=== PATIENT | female | born 1980 | race Caucasian/White ===

== ENCOUNTER → 2017-05-04 | Outpatient (CLI) | payer BC ==
--- NOTE | 2017-05-04 11:21 | MM ---
Reason for exam: screening (asymptomatic). Baseline mammogram. History: Family history of breast cancer in mother at age 60 and breast cancer in maternal grandmother at age 60. Took hormonal contraceptives for 19 years beginning at age 11. Physical Findings: Nurse did not find any significant physical abnormalities on exam. MG Screening Mammo w CAD Bilateral CC and MLO view(s) were taken. The breast tissue is heterogeneously dense. This may lower the sensitivity of mammography. There is no discrete abnormality. Consider BRACA testing secondary to family history. These results were verbally communicated with the patient and result sheet given to the patient on 05/04/17. ASSESSMENT: Negative, BI-RAD 1 RECOMMENDATION: Routine screening mammogram of both breasts at age 38.
== END | disposition home or self-care (01) ==
LOC: RADMAMWWP 09:38
PROVIDERS: ATTEND Family Medicine
DX: Z12.31 Encounter for screening mammogram for malignant neoplasm of breast (principal)

== ENCOUNTER → 2017-07-16 | Outpatient (CLI) | payer BC ==
[2017-07-16 12:37] LABS: Basophils # (A) 0.1 k/uL (0-0.2); Basophils % (A) 2 %; CH 33.3; CHCM 33.8; Eosinophils # (A) 0.2 k/uL (0-0.7); Eosinophils % (A) 3 %; HCT 45.7 % (34.0-46.0); HDW 2.43; HGB 15.1 gm/dL (11.4-16.0); Luc # (Auto) 0.14; Luc % (Auto) 3; Lymphocytes # (A) 1.6 k/uL (1.0-4.8); Lymphocytes % (A) 28 %; MCH 32.7 pg (25.0-35.0); MCHC 33.1 g/dL (31.0-37.0); Mean Platelet Volume 8.4; Monocytes # (A) 0.4 k/uL (0-1.0); Monocytes % (A) 7 %; Neutrophils # (A) 3.2 k/uL (1.3-7.7); Neutrophils % (A) 58 %; RBC 4.62 m/uL (3.80-5.40); RDW 13.4 % (11.5-15.5); WBC 5.6 k/uL (3.8-10.6); WBC (Perox) 5.48
== END | disposition home or self-care (01) ==
LOC: LABPAT 09:52
PROVIDERS: ATTEND Obstetrics & Gynecology
DX: Z01.812 Encounter for preprocedural laboratory examination (principal); N92.1 Excessive and frequent menstruation with irregular cycle
CPT/HCPCS: 85025

== ENCOUNTER → 2017-07-31 | Day surgery (SDC) | payer BC ==
[2017-07-20 14:12] VITALS: BMI 38.7
--- NOTE | 2017-07-27 11:58 | HP ---
HISTORY AND PHYSICAL DATE OF SURGERY: 07/31/2017. HISTORY OF PRESENT ILLNESS: The patient is a 37-year-old, 0, para 0, who presents on referral from Lenora Pace for an evaluation of increasing menstrual heaviness with regularity. She underwent a tubal ligation several years ago and has found that since that time her periods have significantly increased in heaviness and become more and more irregular. She has used oral contraceptives in the past but has never tolerated them well nor has it controlled her bleeding very well. She denies any significant dysmenorrhea and reports the bleeding is her primary problem. After discussion of potential options for treatment, the patient has requested to proceed with diagnostic hysteroscopy with NovaSure endometrial ablation. PAST MEDICAL HISTORY: Significant for hypothyroidism and asthma. PAST SURGICAL HISTORY: Significant for history of cryotherapy, knee surgeries on 3 separate occasions, tonsillectomy, and tubal ligation. There were no reported complications from anesthetic. OBSTETRICAL HISTORY: 0, para 0, with methods of contraception being tubal ligation. GYNECOLOGIC HISTORY: Unremarkable with no history of any infections to include STDs. FAMILY HISTORY: Noncontributory. SOCIAL HISTORY: The patient is single and is a nonsmoker though she did smoke in the past. She reports occasional alcohol and denies any other social concerns. CURRENT MEDICATIONS: She does not have any current medications. ALLERGIES: CODEINE AND DARVOCET causes nausea. REVIEW OF SYSTEMS: As confined to history of present illness. PHYSICAL EXAMINATION: Vital signs are stable. Patient is afebrile. In general, this is a well developed, mild to moderately obese white female, in no acute distress. Her heart has a regular rhythm and rate without murmur. Her lungs are clear to auscultation bilateral in all frankel. Her abdomen is obese, nondistended, and has normoactive bowel sounds, soft, nontender, and without any palpable masses, hepatosplenomegaly, or hernias. Her extremities are without any cyanosis, clubbing, or edema and are not tender to palpation bilaterally. Bimanual pelvic examination demonstrates normal external genitalia and BUS with normal vaginal mucosa and cervix. There is no cervical motion tenderness. The uterus is 5 weeks in size, mid plane, mobile, nontender, normal in shape. Endometrial biopsy was done in 1 pass demonstrating benign findings. ASSESSMENT AND PLAN: Menometrorrhagia: After discussion of potential options, the patient has chosen to proceed with diagnostic hysteroscopy and NovaSure endometrial ablation. Risks and complications have been thoroughly discussed including the risks of bleeding, bleeding requiring transfusion, infection, injury to local structures to specifically include uterine perforation, Asherman syndrome, and hematometra subsequently. She has understood all these concerns and has agreed to proceed. We are scheduled for the morning of July 31, 2017 for the above procedures. MMODL / IJN: [id number] /
[~2017-07-31] MED LIST: Acetaminophen-Codeine 300-30mg TAB PO PRN; DEXAMETHASONE SOD PHOSPHATE 10 MG/ML 1 ML VIAL IV ONE; IBUPROFEN 600 MG TAB PO PRN; KETOROLAC 30 MG/ML 1 ML VIAL IVP PRN; KETOROLAC 30 MG/ML 1 ML VIAL ONE; LACTATED RINGERS 1,000 ML IV SCH; LIDOCAINE 1% 20 ML VIAL (10MG/ML) FOR IV START INTRADERMA PRN; LIDOCAINE 1% INJ 10MG/ML (20 ML MDV) ONE; METOCLOPRAMIDE 5 MG/ML 2 ML VIAL IVP PRN; MIDAZOLAM 2 MG/2 ML VIAL ONE; ONDANSETRON 4 MG/2 ML VIAL IVP ONE; ONDANSETRON 4 MG/2 ML VIAL IVP PRN; PROPOFOL 10 MG/ML 20 ML VIAL IV ONE; Pre Op ABX Message 1 EACH MISC MISCELLANE ONE; ROCURONIUM BROMIDE 10 MG/ML 10 ML VIAL IV ONE; SCOPOLAMINE 1.5MG/72HR PATCH TRANSDERM ONE; SIMETHICONE 80 MG CHEWABLE PO PRN; SUCCINYLCHOLINE CHLORIDE 100 MG/5 ML SYR IV ONE; diphenhydrAMINE 50 MG/ML 1 ML VIAL IVP PRN; fentaNYL (PF) 50 MCG/ML 2 ML AMP IV PRN; fentaNYL (PF) 50 MCG/ML 2 ML AMP ONE
--- NOTE | 2017-07-31 08:53 | P.OP ---
Date of Procedure: 07/31/17 Preoperative Diagnosis: #1. Menometrorrhagia Postoperative Diagnosis: Same Procedure(s) Performed: #1. Diagnostic hysteroscopy #2. NovaSure endometrial ablation Implants: Anesthesia: CALEBA Surgeon: Misael Gifford Estimated Blood Loss (ml): 5 IV fluids (ml): 400 Urine output (ml): 10 Pathology: none sent Condition: stable Disposition: PACU Indications for Procedure: Operative Findings: Preoperative pelvic examination demonstrated a 4-5 week slightly anteverted mobile normal shaped uterus with normal adnexa bilaterally. Intraoperatively, the uterus sounded to 8 cm and the cervix was approximately 3 cm in length. Using the diagnostic hysteroscope, both tubal ostia areas were seen though there was some shaggy tissue in the fundus of the uterus the obscuring actual view of the ostia on each side. There was no fibroids or polyps seen. The settings for the NovaSure tool where a length of 5.0 cm, a width of 3.0 cm, and a total power of 83 W. A total run time was 90 seconds after which time the base unit read "procedure complete." The postprocedural result appeared to be excellent. The patient is a poor candidate for vaginal hysterectomy. Description of Procedure: The patient was prepped and draped in usual fashion after general endotracheal anesthesia was administered by the anesthesiologist. A weighted speculum was placed and the bladder drained of approximately 10 mL of clear urine. The anterior lip of the cervix was grasped with a single-tooth tenaculum and uterus sounded to 8 cm with a cervical length of 3 cm. Serial dilation was carried out to admit the diagnostic hysteroscope which demonstrate findings as noted above. Once adequate hysteroscopy had been carried out, the scope was set aside and further dilation carried out to admit the NovaSure tool. It was placed to the fundus and opened and seated well. The settings for the tool as noted above, a length of 5.0 cm, a width of 3.0 cm, and at total power of 83 W. The cavity check was attempted and passed without difficulty. The tool was enabled and the run was started. After run time of 98 seconds, the tool disengaged and the base unit read "procedure complete." The 2 was removed and discarded and the diagnostic scope place within the endometrial cavity with the findings as noted above. The result appeared to be excellent. All instrument H was then removed. The tenaculum points were noted to be bleeding or made hemostatic with pressure. Estimated blood loss for the case was less than 5 mL. There are no, occasions. All sponge, instrument, and needle counts were correct. The patient tolerated the procedure well and proceeded to the recovery room in stable condition.
[2017-07-31 09:09] VITALS: TEMP 96.8
[2017-07-31 09:45] VITALS: RESP 18
[2017-07-31 10:09] VITALS: BP 136/93; PULSE 78
== END | disposition home or self-care (01) ==
LOC: OR 07:13
PROVIDERS: ATTEND Obstetrics & Gynecology
DX: N92.1 Excessive and frequent menstruation with irregular cycle (principal); E03.9 Hypothyroidism, unspecified; J45.909 Unspecified asthma, uncomplicated; Z88.5 Allergy status to narcotic agent; Z79.899 Other long term (current) drug therapy
CPT/HCPCS: 81025; 58563; J2250; J1100; J2405; J2001; J3010; J1885; J0330; J2704

== ENCOUNTER 2019-07-18 14:46 | Emergency (ER) | payer BC ==
[2019-07-18 14:58] VITALS: RESP 18
[2019-07-18] MEDS ORDERED: ceFAZolin 1,000 MG VIAL (IM USE) IM STA (15:02)
[2019-07-18] MEDS ORDERED: LIDOCAINE 1% INJ 10MG/ML (20 ML MDV) SQ STA (15:03)
[2019-07-18] MEDS ORDERED: DIPH,PERTUS(ACELL)TETVAC-LF 0.5 ML VIAL IM ONE (15:12)
--- NOTE | 2019-07-18 16:39 | ED ---
General Adult HPI - General Source: patient, RN notes reviewed, old records reviewed Mode of arrival: ambulatory Limitations: no limitations <Hugh Preciado - Last Filed: 07/18/19 16:49> <Ange Gabriel - Last Filed: 07/25/19 01:16> - General Chief complaint: Extremity Injury, Upper Stated complaint: Finger Laceration/Injury Time Seen by Provider: 07/18/19 14:57 - History of Present Illness Initial comments: 39-year-old female patient with chief complaint of laceration to distal aspect of third digit. Patient reports that she dropped 2 boxes of Tylenol on the distal aspect of her third and fourth finger. Causing the laceration and pain. Patient has full active range of motion of digit, capillary refill less than 2 seconds. Patient does have a 3 cm laceration of the distal aspect of her third digit. Patient was initially seen at urgent care, they recommend she presented to ED for possible open fracture. Denies any other complaints at this time does not know date of last tetanus. Systemic: Pt denies fatigue, fever/chills, rash. Pt denies weakness, night sweats, weight loss. Neuro: Pt denies headache, visual disturbances, syncope or pre-syncope. HEENT: Pt denies ocular discharge or irritation, otalgia, rhinorrhea, pharyngitis or notable lymphadenopathy. Cardiopulmonary: Pt denies chest pain, SOB, heart palpitations, dyspnea on exertion. Abdominal/GI: Pt denies abdominal pain, n/v/d. : Pt denies dysuria, burning w/ urination, frequency/urgency. Denies new onset urinary or bowel incontinence. MSK: Pt denies myalgia, loss of strength or function in extremities. Neuro: Pt denies new onset weakness, paresthesias. (Hugh Preciado) - Related Data Home Medications Medication Instructions Recorded Confirmed SUMAtriptan SUCCINATE [Imitrex] 25 mg PO BID PRN 07/20/17 07/31/17 Previous Rx's Medication Instructions Recorded Cephalexin [Keflex] 500 mg PO Q6HR 10 Days #40 cap 07/18/19 Allergies Allergy/AdvReac Type Severity Reaction Status Date / Time codeine AdvReac Nausea & Verified 07/18/19 14:51 Vomiting Review of Systems ROS Other: All systems not noted in ROS Statement are negative. <Hugh Preciado - Last Filed: 07/18/19 16:49> ROS Other: All systems not noted in ROS Statement are negative. <Ange Gabriel - Last Filed: 07/25/19 01:16> ROS Statement: Those systems with pertinent positive or pertinent negative responses have been documented in the HPI. Past Medical History Past Medical History: Osteoarthritis (OA) History of Any Multi-Drug Resistant Organisms: None Reported Past Surgical History: Orthopedic Surgery, Tonsillectomy Additional Past Surgical History / Comment(s): fx left femur repair, knee surg. Past Anesthesia/Blood Transfusion Reactions: Postoperative Nausea & Vomiting (PONV) Past Psychological History: No Psychological Hx Reported Smoking Status: Former smoker Past Alcohol Use History: Occasional Past Drug Use History: None Reported - Past Family History Mother Family Medical History: Cancer Additional Family Medical History / Comment(s): breast Father Family Medical History: Cancer Additional Family Medical History / Comment(s): prostate <Hugh Preciado - Last Filed: 07/18/19 16:49> General Exam Limitations: no limitations <Hugh Preciado - Last Filed: 07/18/19 16:49> - General Exam Comments Initial Comments: Constitutional: NAD, AOX3, Pt has pleasant affect. HEENT: NC/AT, trachea midline, neck supple, no lymphadenopathy. Posterior pharynx non erythematous, without exudates. External ears appear normal, without discharge. Mucous membranes moist. Eyes PERRLA, EOM intact. There is no scleral icterus. No pallor noted. Cardiopulmonary: RRR, no murmurs, rubs or gallops, no JVD noted. Lungs CTAB in anterior and posterior frankel. No peripheral edema. Abdominal exam: Abdomen soft and non-distended. Abdomen non-tender to palpation in all 4 quadrants. Bowel sounds active in LLQ. No hepatosplenomegaly. No ecchymosis Neuro: CN II-XII grossly intact. No nuchal rigidity. No raccon eyes, no brito sign, no hemotympanum. No cervical spinal tenderness. MSK: 3 cm laceration to distal aspect of third digit, no nailbed involvement, approximated with 5 simple interrupted sutures. Grossly irrigated with 1 L normal saline, cleaned with Betadine. No osseous or tendinous involvement. No posterior calf tenderness bilaterally, homans sign negative bilaterally. Posterior tibialis and radial pulse +2 bilaterally. Sensation intact in upper and lower extremities. Full active ROM in upper and lower extremities, 5/5 stregnth. (Hugh Preciado) Course Vital Signs 07/18/19 07/18/19 07/18/19 14:51 16:07 16:50 Temperature 97.9 F 97.7 F Pulse Rate 112 H 102 H 104 H Respiratory 18 18 18 Rate Blood Pressure 174/104 160/101 138/88 O2 Sat by Pulse 94 L 94 L 98 Oximetry Medical Decision Making <Hugh Preciado - Last Filed: 07/18/19 16:49> <Ange Gabriel - Last Filed: 07/25/19 01:16> - Medical Decision Making 39-year-old female patient with chief complaint of laceration to distal aspect of third digit. Patient reports that she dropped 2 boxes of Tylenol on the distal aspect of her third and fourth finger. Causing the laceration and pain. Patient has full active range of motion of digit, capillary refill less than 2 seconds. Patient does have a 3 cm laceration of the distal aspect of her third digit. Patient was initially seen at urgent care, they recommend she presented to ED for possible open fracture. Denies any other complaints at this time does not know date of last tetanus. Patient vital signs stable at discharge. Patient vital signs displayed mild hypertension, tachycardia likely secondary to pain. Physical exam displayed: 3 cm laceration to distal aspect of third digit, no nailbed involvement, approximated with 5 simple interrupted sutures. Grossly irrigated with 1 L normal saline, cleaned with Betadine. No osseous or tendinous involvement. Plain film of hand dictated by radiologist Reza Soares displayed a cute comminuted minimally displaced fracture distal third phalanx. Wound was loosely irrigated with 1 L normal saline, prepped male with 5 simple interrupted sutures, patient administered 1 g Ancef, will be discharged with Keflex 4 times a day, will have close outpatient follow-up with orthopedist tomorrow, discharge and straight finger splint. Films were reviewed. Case discussed and patient seen by Dr. Gabriel. (Hugh Preciado) I did evaluate the patient myself. She presents with an open fracture to the left third digit. her x-rays were reviewed. her laceration was copiously irrigated with normal saline. her tetanus was updated. Her lacerations was repaired in a single layer closure utilizing 5 interrupted sutures. There was good approximation of the skin and the patient tolerated the procedure well as local infiltration with 1% lidocaine without epinephrine was utilized. She is given a dose of ancef in the ED. She will be discharged home on antibiotics. She needs to see orthopedics without fail. She was placed in a baseball splint. She remained neurovascularly intact after splint placement. If she has any new or worsening symptoms, she should return to the ED. She was discharged home in stable condition. (Ange Gabriel) Disposition Is patient prescribed a controlled substance at d/c from ED?: No <Hugh Preciado - Last Filed: 07/18/19 16:49> <Ange Gabriel - Last Filed: 07/25/19 01:16> Clinical Impression: Fracture of distal phalanx of finger, Laceration Disposition: HOME SELF-CARE Condition: Stable Instructions (If sedation given, give patient instructions): Laceration (ED), Finger Fracture (ED) Additional Instructions: Patient to adhere to previously discussed treatment plan and will take medication(s) as directed. Patient to follow up with PCP in 1-2 days. Patient to return to ED if symptoms do not improve. Follow-up with primary care provider and orthopedic consult tomorrow. Take medication as directed. Return to ER immediately if conditions worsen. Please return for suture removal: Hand: 7-10 days Face: 5 days Chest/abdomen: 12-14 days Extremities: 7-10 days Scalp: 7 days Eyebrow: 5-7 days Foot/sole: 12-14 days Please monitor for signs and symptoms of infection including: redness, warmth, drainage, discharge. Please return to ED if these signs or symptoms occur, new signs or symptoms d evelop or if condition worsens in anyway. Prescriptions: Cephalexin [Keflex] 500 mg PO Q6HR 10 Days #40 cap Referrals: Nia Rocha III, MD [Primary Care Provider] - 1-2 days Nate Garsia DO [Medical Doctor] - 1-2 days
[2019-07-18 16:51] VITALS: BP 138/88; PULSE 104; TEMP 97.7
== END 2019-07-18 16:51 | disposition home or self-care (01) ==
LOC: EC 14:46
DX: S62.633B Displaced fracture of distal phalanx of left middle finger, initial encounter for open fracture (principal); Z23 Encounter for immunization; W20.8XXA Other cause of strike by thrown, projected or falling object, initial encounter; Y99.0 Civilian activity done for income or pay
CPT/HCPCS: 90715; 99283; 90471; 96372; 12002; J0690; J2001

== ENCOUNTER → 2021-12-31 | Outpatient (CLI) | payer BC ==
[2021-12-31 11:41] LABS: Appearance,Urine Clear (Clear); Bilirubin,Urine Negative (Negative); Blood,Urine Moderate (Negative); Color,Urine Light Yellow; Glucose,Urine (UA) Negative (Negative); Ketones,Urine Negative (Negative); Leukocyte Esterase,Urine Negative (Negative); Nitrite,Urine Negative (Negative); PH, Urine 6.5 (5.0-8.0); Protein,Urine Negative (Negative); RBC,Urine <1 /hpf (0-5); Specific Gravity,Urine 1.008 (1.001-1.035); Squamous Epithelial Cell,Urine 2 /hpf (0-4); Urobilinogen,Urine <2.0 mg/dL (<2.0); WBC,Urine 1 /hpf (0-5)
[2021-12-31 16:21] LABS: Basophils # (A) 0.08 X 10*3/uL (0.00-0.10); Basophils % (A) 1.4 %; Eosinophils # (A) 0.19 X 10*3/uL (0.04-0.35); Eosinophils % (A) 3.4 %; HCT 45.5 % (37.2-46.3); Immature Grans, Automated 0.2 %; Lymphocytes # (A) 1.64 X 10*3/uL (0.90-5.00); Lymphocytes % (A) 29.5 %; MCH 31.1 pg (27.0-32.0); MCV 94.4 fL (80.0-97.0); Mean Platelet Volume 10.4 fL (9.5-12.2); Monocytes # (A) 0.47 X 10*3/uL (0.20-1.00); Monocytes % (A) 8.5 %; NRBC Per 100 WBC 0 /100 WBCS (0.0-0.0); Neutrophils # (A) 3.16 X 10*3/uL (1.80-7.70); Platelet Count 319 X 10*3/uL (140-440); RBC 4.82 X 10*6/uL (4.10-5.20); RDW 12.5 % (11.5-14.5); WBC 5.55 X 10*3/uL (4.50-10.00)
[2021-12-31 16:29] LABS: African American GFR (CKD) 100.7 (60.0-200.0); Anion Gap 12.2 mmol/L (10.00-18.00); Blood Urea Nitrogen 13.1 mg/dL (9.0-27.0); Carbon Dioxide 22.5 mmol/L (20.0-27.5); Non-African American GFR(CKD) 86.9 (60.0-200.0); Potassium 4.2 mmol/L (3.5-5.5)
== END | disposition home or self-care (01) ==
LOC: LABPAT 10:28
PROVIDERS: ATTEND Obstetrics & Gynecology
DX: Z01.812 Encounter for preprocedural laboratory examination (principal); D25.9 Leiomyoma of uterus, unspecified
CPT/HCPCS: 80051; 81001; 82565; 84520; 85025

== ENCOUNTER 2022-01-10 05:46 | Inpatient (IN) | payer BC ==
[2022-01-05 12:02] VITALS: BMI 41.0
[2022-01-10] MEDS ORDERED: HYDROmorphone 0.5 MG/0.5 ML SYRINGE IVP PRN (06:15)
[2022-01-10] MEDS ORDERED: ONDANSETRON 4 MG/2 ML VIAL IVP ONE (06:15)
[2022-01-10] MEDS ORDERED: DEXAMETHASONE SOD PHOSPHATE 4 MG/ML 1 ML VIAL IV ONE (06:15)
[2022-01-10] MEDS ORDERED: LACTATED RINGERS 1,000 ML IV SCH (06:15)
[2022-01-10 06:45] LABS: Glucose,Whole Blood 95 mg/dL (75-99)
[2022-01-10] MEDS ORDERED: LACTATED RINGERS 1,000 ML IV ONE (07:05)
[2022-01-10] MEDS ORDERED: MIDAZOLAM 2 MG/2 ML VIAL IVP ONE (07:09)
[2022-01-10 07:18] VITALS: BP 149/88; PULSE 90; RESP 16; TEMP 97.6
[2022-01-10] MEDS ORDERED: diphenhydrAMINE 50 MG/ML 1 ML VIAL ONE (07:49)
[2022-01-10] MEDS ORDERED: diphenhydrAMINE 50 MG/ML 1 ML VIAL IVP ONE (07:49)
== END 2022-01-10 10:03 | disposition home or self-care (01) | DRG 760 ==
LOC: 2ORMAIN 05:46
PROVIDERS: ADMIT Obstetrics & Gynecology; ATTEND Obstetrics & Gynecology
DX: D25.9 Leiomyoma of uterus, unspecified (principal); U07.1 COVID-19; Z53.09 Procedure and treatment not carried out because of other contraindication; N94.6 Dysmenorrhea, unspecified; Z98.51 Tubal ligation status; J45.909 Unspecified asthma, uncomplicated; E03.9 Hypothyroidism, unspecified; Z79.890 Hormone replacement therapy; Z88.5 Allergy status to narcotic agent; Z87.891 Personal history of nicotine dependence
CPT/HCPCS: 36415; 86850; 86900; 86901; 87635

== ENCOUNTER 2022-01-24 10:30 | Inpatient (IN) | payer BC ==
--- NOTE | 2022-02-02 15:12 | HP ---
HISTORY AND PHYSICAL REASON FOR ADMISSION: Dictation is done on February 02 for surgery on February 07. HISTORY OF PRESENT ILLNESS: The patient is a 41-year-old 0, para 0, who presented recently for annual examination at which time, she was found with a significantly enlarged probable fibroid uterus in the size of 16-20 weeks. Prior to that visit, she had last been seen in 2017 for an ablation at which time the uterus had been documented approximately 5 week size. She reports significant dysmenorrhea, though she does not have significantly heavy periods. Ultrasounds confirmed multiple fibroids with the largest which is probably appears to be pedunculated in nature. The fundus ranging approximately 14 cm in size. The patient has requested definitive therapy. She had been previously scheduled approximately 1 month ago, but, per hospital protocol, had COVID testing, which was found to be positive despite being completely asymptomatic. Nevertheless, the case was canceled and rescheduled for 30 days later per the recommendations of the [employer]. PAST MEDICAL HISTORY: Significant for hypothyroidism and asthma. SURGICAL HISTORY: She has a remote history of cryotherapy. She otherwise has had multiple knee surgeries. She had her tonsils removed in 1999, and tubal ligation in 2013. She then had hysteroscopy with NovaSure endometrial ablation in 2016. There were no anesthetic concerns. OBSTETRICAL/MINE MANAGER HISTORY: 0, para 0, with tubal ligation in place for contraception. Gynecologic history: Unremarkable with no recent history of infections to include STDs though she does have a remote history of same treated many years back. FAMILY HISTORY: Noncontributory. 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 She is a nonsmoker but has a history of smoking in the past. She reports occasional alcohol and no other social concerns. CURRENT MEDICATIONS: Ubrelvy for migraine headaches. ALLERGIES: CODEINE and DARVOCET reportedly caused nausea in the past. REVIEW OF SYSTEMS: Is confined to history of present illness. PHYSICAL EXAMINATION: Vital signs are stable. The patient is afebrile. In general, this is a well- developed, well to moderately obese, white female in no acute distress. Her heart has a regular rhythm and rate without murmur. Her lungs are clear to auscultation bilaterally in all frankel. Her abdomen is nondistended, has normoactive bowel sounds, soft, nontender, without any palpable masses aside from the uterine fundus which is palpable just below the umbilicus. Her extremities are without any cyanosis, clubbing, or edema. Nontender to palpation bilaterally. Pelvic examination demonstrates normal external genitalia and BUS with normal vaginal mucosa of the cervix. There is no cervical motion tenderness. Uterus is approximately 16-20 weeks in size, mid plane, mobile, and quite irregular in shape. ASSESSMENT AND PLAN: Symptomatic fibroid uterus with dysmenorrhea: The only option for further treatment is hysterectomy. Given the size and relatively rapid growth, I have recommended a total abdominal hysterectomy. This may well require a vertical incision as well. The risks and complications of the procedure have been thoroughly discussed to include bleeding, bleeding requiring transfusion, infection, injury to local structures to specifically include the bowel, bladder, and ureters. We do intend to likely remove the fallopian tubes, but leave the ovaries assuming they are found to be normal. We went on to further discuss the typical hospital and postoperative recovery course as well. She has understood all this and agreed to proceed. MMODL / IJN: [id number] /
[2022-02-03 11:58] VITALS: BMI 40.0
[2022-02-06] MEDS ORDERED: DEXAMETHASONE SOD PHOSPHATE 4 MG/ML 1 ML VIAL IV ONE (17:32)
[2022-02-06] MEDS ORDERED: ONDANSETRON 4 MG/2 ML VIAL IVP ONE (17:32)
[2022-02-07] MEDS: LACTATED RINGERS 1,000 ML IV SCH ×4 (06:10→23:36)
[2022-02-07] MEDS ORDERED: MIDAZOLAM 2 MG/2 ML VIAL IVP ONE (06:59)
[2022-02-07] MEDS ORDERED: HYDROmorphone 0.5 MG/0.5 ML SYRINGE IVP PRN (07:00)
[2022-02-07] MEDS ORDERED: diphenhydrAMINE 50 MG/ML 1 ML VIAL IVP ONE (07:08)
[2022-02-07] MEDS ORDERED: diphenhydrAMINE 50 MG/ML 1 ML VIAL ONE (07:09)
[2022-02-07] MEDS ORDERED: SCOPOLAMINE 1.5MG/72HR PATCH TRANSDERM ONE (07:13)
[2022-02-07] MEDS ORDERED: ESMOLOL 100 MG/10 ML VIAL ONE (07:30)
[2022-02-07] MEDS ORDERED: HYDROmorphone (PF) 1 MG/ML ONE (07:30)
[2022-02-07] MEDS ORDERED: SUCCINYLCHOLINE CHLORIDE 100 MG/5 ML SYR IV ONE (07:30)
[2022-02-07] MEDS ORDERED: NEOSTIGMINE 1 MG/ML 10 ML VIAL ONE (07:30)
[2022-02-07] MEDS ORDERED: MORPHINE SULFATE (PF) 0.3 MG/0.3 ML SYR ONE (07:30)
[2022-02-07] MEDS ORDERED: ROCURONIUM 10 MG/ML (5 ML VIAL) IV ONE (07:30)
[2022-02-07] MEDS ORDERED: GLYCOPYRROLATE 0.2 MG/ML 2 ML VIAL ONE (07:30)
[2022-02-07] MEDS ORDERED: LIDOCAINE 1% INJ 10MG/ML (20 ML MDV) ONE (07:30)
[2022-02-07] MEDS ORDERED: PROPOFOL 10 MG/ML 20 ML VIAL IV ONE (07:30)
[2022-02-07] MEDS ORDERED: fentaNYL (PF) 50 MCG/ML 2 ML AMP ONE (07:30)
[2022-02-07] MEDS ORDERED: LACTATED RINGERS 1,000 ML IV ONE ×2 (07:38→08:47)
[2022-02-07] MEDS ORDERED: SIMETHICONE 80 MG CHEWABLE PO PRN (09:34)
[2022-02-07] MEDS ORDERED: METOCLOPRAMIDE 5 MG/ML 2 ML VIAL IVP PRN (09:34)
[2022-02-07] MEDS ORDERED: KETOROLAC 15 MG/ML 1 ML VIAL IVP PRN (09:34)
[2022-02-07] MEDS ORDERED: ONDANSETRON 4 MG/2 ML VIAL IVP PRN (09:34)
[2022-02-07] MEDS ORDERED: diphenhydrAMINE 50 MG/ML 1 ML VIAL IVP PRN (09:34)
[2022-02-07] MEDS ORDERED: HYDROcodone/APAP 5-325MG 1 EACH TAB PO PRN (09:37)
--- NOTE | 2022-02-07 09:49 | P.OP ---
Date of Procedure: 02/07/22 Preoperative Diagnosis: #1. Symptomatic fibroid uterus, approximately 20 week size #2. Chronic pelvic pain with dysmenorrhea Postoperative Diagnosis: Same Procedure(s) Performed: #1. Total abdominal hysterectomy with bilateral salpingectomy Anesthesia: LORA Surgeon: Misael Gifford Associate Professor Of Engineering #1: Olga Church Estimated Blood Loss (ml): 400 IV fluids (ml): 1,700 Urine output (ml): 150 Pathology: other (Uterus with detached fibroid and bilateral fallopian tubes) Condition: stable Disposition: PACU Operative Findings: Preoperative pelvic examination demonstrated the uterus or more likely the pedunculated fibroid to be palpable at her just above the umbilicus. It was significantly mobile. Intraoperatively it was noted to be widely pedunculated from the left uterine fundus. The remainder of the uterus was essentially normal though there were some small palpable fibroids within the uterine wall. The bilateral ovaries were normal and left in place. There was some bleeding from what appeared to be a corpus luteum on the left ovary which was made hemostatic with the Bovie as well as a jyjimq-bc-hhuet stitch of 0 Vicryl. Urine was clear throughout the case Description of Procedure: The patient was prepped and draped in usual fashion after general endotracheal anesthesia was administered by the anesthesiologist. As the mass was easily mobile and felt to be pedunculated, decision was made to proceed with a Pfannenstiel incision. The Pfannenstiel incision was made and extended into the abdominal cavity without difficulty. The findings were as noted above with a large approximately 15 cm or larger pedunculated fibroid arising from the left fundus. The fibroid was delivered through the incision and the uterus brought up with that as well. To create space, a Saima-Pe[place] clamp was placed across the wide pedicle of the fibroid and the fibroid divided from the patient. The pedicle was then transfixion sutured with 0 Vicryl. Once hemostasis was ad equate, attention was turned to the normal hysterectomy. A Waylon O'Mcmillan self-retaining retractor was placed and the bowel packed from the wound. The margins of the uterus regrasped with Ana clamps bilaterally. The right round ligament was elevated, clamped with a curved Saima-Pe[place] clamp, cut, and suture ligated with a stitch of 0 Vicryl. A window was made in the posterior leaf of the peritoneum to isolate the utero-ovarian pedicle. A Saima- [place] was placed across this pedicle with the fallopian tube left attached to the uterus to be removed. The pedicle was cut with the Johnson scissors and transfixion stitched with a stitch of 0 Vicryl followed by free tie of 0 Vicryl. The bladder peritoneum was then developed to the midline and the uterine vasculature skeletonized. Attention was turned to the left side where similar operations were carried out with somewhat more difficulty secondary to the large blood vessels that had been feeding the fibroid and the edematous nature of the tissue. Once uterine vasculature had been skeletonizing clearly identified, curved Saima-Pe[place] clamps were placed across each side with each pedicle being cut, and suture ligated with a transfixion stitch of 0 Vicryl. Serial bites were taken down the cardinal ligament towards uterosacral ligament on each side using straight Saima-Peoria clamps. Several bites were necessary in each side as the cervix was extraordinarily long. Each was cut and suture ligated with transfixion stitches of 0 Vicryl. At the angle of the top of the vagina and cervix, curved Saima-Pe[place] clamps were utilized to come across below the cervix to enter the vagina. The specimen was ultimately had been denuded from the patient and sent for pathological diagnoses. The intervening open margins of the vagina were grasped with [place]st clamps. The vagina was closed with a running locking stitch of 0 Vicryl proceeding from angle to angle. Hemostasis at the cuff appeared to be excellent. Reexamination of the upper pedicles demonstrated good hemostasis though the left ovary was noted to be bleeding from what appeared to be a corpus luteum cyst. Initial attempts to improve the bleeding with xlehxx-co-abmce stitches failed as the stitch tore through the tissue. Ultimately, cautery was used at the margins and a single loose pyzwuz-zb-agbcb stitch of 0 Vicryl and achieved adequate hemostasis. Thorough irrigation was carried out and there was no ongoing pathology or points of bleeding anywhere in the pelvis. Urine was noted to be clear throughout the entire case. All instrumentation was then removed after placing surgical site of over the vaginal cuff and over the area of concern with the left ovary. The parietal peritoneum was loosely reapproximated in the layer of muscles examined and made hemostatic with the Bovie. Once hemostasis was achieved, the fascia was closed with 2 running stitches of 0 Vicryl proceeding from the lateral margins to the midpoint. The subcutaneous tissues were made hemostatic with the Bovie and then reapproximated with a running stitch of 3-0 Vicryl. The skin was reapproximated with a running subcuticular stitch of 4-0 Vicryl followed by half-inch Steri-Strips placed with Mastisol. Estimated blood loss for the case was approximately 400 mL. There were no complications. All sponge, instrument, and needle counts were correct. The patient tolerated the procedure well and proceeded to the recovery room in stable condition.
[2022-02-07] MEDS ORDERED: NALOXONE 0.4 MG/ML 1 ML VIAL IV PRN (12:48)
--- NOTE | 2022-02-07 12:48 | P.ANPRN ---
Procedure Note - Anesthesia - Epidural/Spinal Spinal Time Out Performed: Yes Date of Procedure: 02/07/22 Procedure Start Time: 06:58 Procedure Stop Time: 07:02 Indication: Acute Post-Operative Pain, Requested by Surgeon Sedation Type: Sedate with meaningful contact maintained Preparation: Sterile Prep Position: Sitting Needle Guage: 25 Blood Aspirated: No Pain Paresthesia on Injection Noted: No Events: Uneventful and Well Tolerated (duramorph 300 mics plus fetanyl 25 mics)
[2022-02-07] MEDS: HYDROcodone/APAP 5-325MG 1 EACH TAB PO PRN ×2 (15:48→23:37)
[2022-02-07] MEDS: SENNOSIDES-DOCUSATE SODIUM 1 EACH TAB PO SCH (19:31)
[2022-02-07] MEDS: IBUPROFEN 600 MG TAB PO PRN (19:31)
[2022-02-08] MEDS: IBUPROFEN 600 MG TAB PO PRN ×3 (05:43→19:40)
[2022-02-08] MEDS: LACTATED RINGERS 1,000 ML IV SCH ×3 (05:44→20:16)
--- NOTE | 2022-02-08 07:43 | P.PN ---
Progress Note - Text Progress Note Date: 02/08/22 Ms. Otero is a 41-year-old female had a history of Total abdominal hysterectomy with bilateral salpingectomy , patient received spinal analgesia with Astramorph 300 g for postop pain. Today patient is comfortable sitting in her bed. Today patient rated her pain level 3-4 out of 10 in severity. Patient had a history of mild itching yesterday, status post received 2 doses of Benadryl. Today I reaching was resolved. Denied any fever, drowsiness, confusion. Denied any weakness, tingling sensation in her lower extremities. Denied any bowel or bladder problems. Moving all extremities without any difficulty. Able to walk without any difficulties. Vitals: Hemodynamically stable Continue oral pain medication as per primary team.
--- NOTE | 2022-02-08 08:49 | P.PN ---
Subjective Progress Note Date: 02/08/22 Principal diagnosis: Symptomatic fibroid uterus Patient reports feeling fairly well today. She has not had any flatus to this point but is urinating without difficulty with a Williamson out. She has been ambulatory thus far without any difficulty. Objective - Vital Signs Vital signs: Vital Signs Temp 97.6 F 02/07/22 23:37 Pulse 98 02/07/22 23:37 Resp 16 02/07/22 23:37 BP 111/78 02/07/22 23:37 Pulse Ox 96 02/07/22 17:43 Intake & Output 02/07/22 02/08/22 02/08/22 18:59 06:59 18:59 Intake Total 2450 Output Total 1450 350 Balance 1000 -350 Intake: IV 1950 Oral 500 Output: Urine 1050 350 Uretheral (Williamson) 800 Estimated Blood Loss 400 Other: # Voids 3 - Exam In general, this is a well-developed, well-nourished white female in no acute distress. Her heart has a regular rhythm and rate without murmur. Her lungs clear to auscultation bilaterally in all frankel. Her abdomen is nondistended, soft, appropriately tender for postsurgical state. The incision is clean, dry, and intact. Her extremities without any cyanosis, clubbing, or edema and are nontender to palpation bilaterally. Assessment and Plan (1) Fibroid uterus Current Visit: Yes Status: Acute Code(s): D25.9 - LEIOMYOMA OF UTERUS, UNSPECIFIED SNOMED Code(s): 10189142 Plan: Continue routine postoperative care. She will have her diet advanced to regular once flatus happens. I strongly encouraged her to ambulate in the hallways routinely. She additionally will be transitioned over to oral pain medications today. I would anticipate discharge home tomorrow pending no complications.
[2022-02-08] MEDS: HYDROcodone/APAP 5-325MG 1 EACH TAB PO PRN ×2 (08:52→15:04)
[2022-02-08] MEDS: SENNOSIDES-DOCUSATE SODIUM 1 EACH TAB PO SCH ×2 (08:54→19:40)
[2022-02-08] MEDS ORDERED: ACETAMINOPHEN TAB 325 MG TAB PO PRN (09:37)
[2022-02-08 10:26] LABS: Basophils % (A) 0 %; Eosinophils # (A) 0.2 k/uL (0-0.7); Eosinophils % (A) 2 %; HCT 37.3 % (34.0-46.0); HGB 12.7 gm/dL (11.4-16.0); Lymphocytes # (A) 2.1 k/uL (1.0-4.8); Lymphocytes % (A) 22 %; MCH 33.2 pg (25.0-35.0); MCHC 34.1 g/dL (31.0-37.0); MCV 97.5 fL (80.0-100.0); Mean Platelet Volume 7.6; Monocytes # (A) 0.7 k/uL (0-1.0); Monocytes % (A) 7 %; Neutrophils # (A) 6.2 k/uL (1.3-7.7); Neutrophils % (A) 66 %; Platelet Count 295 k/uL (150-450); RBC 3.82 m/uL (3.80-5.40); RDW 13.1 % (11.5-15.5); WBC 9.4 k/uL (3.8-10.6)
[2022-02-08 23:18] VITALS: BP 128/70; PULSE 86; TEMP 97.9
[2022-02-09] MEDS: HYDROcodone/APAP 5-325MG 1 EACH TAB PO PRN ×2 (03:48→10:14)
[2022-02-09] MEDS: LACTATED RINGERS 1,000 ML IV SCH (04:22)
[2022-02-09] MEDS: SENNOSIDES-DOCUSATE SODIUM 1 EACH TAB PO SCH (07:40)
[2022-02-09] MEDS: IBUPROFEN 600 MG TAB PO PRN (07:40)
[2022-02-09 07:47] VITALS: RESP 18
--- NOTE | 2022-02-09 08:51 | P.DS ---
Providers Date of admission: 02/07/22 05:52 Expected date of discharge: 02/09/22 Attending physician: Misael Gifford Primary care physician: Nia Rocha - Discharge Diagnosis(es) (1) Fibroid uterus Current Visit: Yes Status: Acute Hospital Course: The patient's a 41-year-old 0 para 0 who presented to the office recently for annual examination having not been in the office for proximally 6 years prior. She was found with a significantly enlarged suspected fibroid uterus approximately 20 weeks in size. She underwent ultrasound which confirmed likely a large fundal pedunculated fibroid with smaller fibroids in the body of the uterus. Given the size the uterus, the only reasonable option for treatment was total abdominal hysterectomy. After counseling, she was taken to the operating room where she underwent total abdominal hysterectomy with bilateral salpingectomy in an uncomplicated fashion. Her postoperative course was unremarkable vital signs being stable and her temperature was afebrile throughout. She was tolerating regular diet late on postoperative day #1 and with no issue on the morning of postoperative day #2. She was deemed stable for discharge on postoperative day 2 was discharged home to follow-up in the office in 2 weeks for an incision check and 6 weeks routinely. Discharge instructions included calling for any significantly increased vaginal bleeding, signs or symptoms of infection to include fever or incisional issues, increased pain, or anything else that concerned her. She was additionally instructed to do no heavy lifting over the next 6 weeks and to abstain from anything in the vagina for the same period of time. She was last instructed to do no driving until off of all pain medications or 2 weeks' time, whichever came first. She understood all of her instructions and agrees follow up as noted above. Discharge medications included only llop-omv-cqnfflf analgesic pain medications as well as a prescription for [place] 5/325 mg, 1-2 by mouth every 6 hours care pain, #20 dispensed with no refills. Discharge hemoglobin and hematocrit were 12.7 and 37.3 respectively. Procedures: #1. Total abdominal hysterectomy with bilateral salpingectomy Patient Condition at Discharge: Stable Plan - Discharge Summary Discharge Rx Participant: Yes New Discharge Prescriptions: No Action Naproxen Sodium [Aleve] 220 mg PO Q12HR Multivitamins, Thera [Multivitamin (formulary)] 1 tab PO DAILY Ubrogepant [Ubrelvy] 100 mg PO DIRECTED PRN PRN Reason: migraines Discharge Medication List Multivitamins, Thera [Multivitamin (formulary)] 1 tab PO DAILY 01/05/22 [History] Naproxen Sodium [Aleve] 220 mg PO Q12HR 01/05/22 [History] Ubrogepant [Ubrelvy] 100 mg PO DIRECTED PRN 01/05/22 [History] Follow up Appointment(s)/Referral(s): Misael Gifford MD [STAFF PHYSICIAN] - 2 Weeks Discharge Disposition: HOME SELF-CARE
== END 2022-02-09 10:40 | disposition home or self-care (01) | DRG 743 ==
LOC: 2ORMAIN 02-07 05:52 → 4FBP 02-07 09:45
PROVIDERS: ADMIT Obstetrics & Gynecology; ATTEND Obstetrics & Gynecology
PROC: 0UT70ZZ Resection of Bilateral Fallopian Tubes, Open Approach (ICD-10-PCS; 2022-02-07)
PROC: 0UT90ZZ Resection of Uterus, Open Approach (ICD-10-PCS; principal; 2022-02-07 07:30)
DX: D25.9 Leiomyoma of uterus, unspecified (principal); E03.9 Hypothyroidism, unspecified; G43.909 Migraine, unspecified, not intractable, without status migrainosus; G89.29 Other chronic pain; J45.909 Unspecified asthma, uncomplicated; N94.6 Dysmenorrhea, unspecified; Z86.16 Personal history of COVID-19; Z87.891 Personal history of nicotine dependence; Z98.51 Tubal ligation status
CPT/HCPCS: 81025; 85025; 86850; 86900; 86901; 88307

== ENCOUNTER → 2022-01-30 | Outpatient (CLI) | payer BC ==
[2022-01-30 14:53] LABS: Basophils # (A) 0.07 X 10*3/uL (0.00-0.10); Basophils % (A) 1.2 %; Eosinophils # (A) 0.22 X 10*3/uL (0.04-0.35); Eosinophils % (A) 3.9 %; HGB 15.3 g/dL (12.0-15.0); Immature Grans, Automated 0.4 %; Lymphocytes # (A) 1.57 X 10*3/uL (0.90-5.00); Lymphocytes % (A) 27.5 %; MCH 31.4 pg (27.0-32.0); MCHC 32.6 g/dL (32.0-37.0); MCV 96.3 fL (80.0-97.0); Mean Platelet Volume 10.2 fL (9.5-12.2); Monocytes # (A) 0.55 X 10*3/uL (0.20-1.00); Monocytes % (A) 9.6 %; NRBC Per 100 WBC 0 /100 WBCS (0.0-0.0); Neutrophils # (A) 3.27 X 10*3/uL (1.80-7.70); Neutrophils % (A) 57.4 %; Platelet Count 305 X 10*3/uL (140-440); RBC 4.88 X 10*6/uL (4.10-5.20); RDW 13.4 % (11.5-14.5)
[2022-01-30 15:20] LABS: African American GFR (CKD) 104.7 (60.0-200.0); Anion Gap 14.2 mmol/L (10.00-18.00); Blood Urea Nitrogen 15.9 mg/dL (9.0-27.0); Carbon Dioxide 23.9 mmol/L (20.0-27.5); Non-African American GFR(CKD) 90.3 (60.0-200.0); Potassium 4.8 mmol/L (3.5-5.5)
== END | disposition home or self-care (01) ==
LOC: LABWHC1 08:10
PROVIDERS: ATTEND Obstetrics & Gynecology
DX: Z01.812 Encounter for preprocedural laboratory examination (principal); D25.9 Leiomyoma of uterus, unspecified
CPT/HCPCS: 36415; 80051; 82565; 82947; 84520; 85025; 87086

== ENCOUNTER → 2022-12-06 | Outpatient (CLI) | payer BC ==
--- NOTE | 2022-12-06 10:36 | MM ---
Reason for Exam: Clinical finding. Last screening mammogram was performed 9 month(s) ago. Patient History: Menarche at age 10. Patient has no children. Hormonal Contraceptives for 19 years from age 11 until age 33. Maternal grandmother had breast cancer, age 60. Mother had breast cancer, age 60. Risk Values: Peggy 5 year model risk: 1.5%. NCI Lifetime model risk: 18.2%. Prior Study Comparison: 05/04/2017 Bilateral Screening Mammogram, [facility]. 02/28/2022 Bilateral Screening Mammogram, [facility]. Tissue Density: Right: The breast tissue is heterogeneously dense. This may lower the sensitivity of mammography. Findings: Analyzed By CAD. There is grouped pleomorphic calcifications within the right breast at middle depth in the medial upper aspect of the left breast approximately 9 cm from the nipple. Area of palpable abnormality marker is near to these calcifications. Further evaluation with ultrasound. Overall Assessment: Incomplete: need additional imaging evaluation, BI-RAD 0 Management: Diagnostic Breast Ultrasound of the right breast. Stereotactic Core Biopsy of the left breast. Immediate ultrasound of the area of palpable abnormality in the right breast. Recommendations for ultrasound findings on subsequent ultrasound. Stereotactic left breast biopsy of the suspicious grouped calcifications. At middle depth superior medial aspect. A clinical breast exam by your physician is recommended on an annual basis and results should be correlated with mammographic findings. This exam should not preclude additional follow-up of suspicious palpable abnormalities. Results were given to the patient verbally at the time of exam. Electronically signed and approved by: Cruzito Roy DO
--- NOTE | 2022-12-06 10:59 | USB ---
Reason for Exam: Clinical finding. Patient History: Menarche at age 10. Patient has no children. Hysterectomy at age 41. Hormonal Contraceptives for 19 years from age 11 until age 33. Maternal grandmother had breast cancer, age 60. Mother had breast cancer, age 60. Risk Values: Peggy 5 year model risk: 1.5%. NCI Lifetime model risk: 18.2%. Technique: Method: Targeted. Prior Study Comparison: 05/04/2017 Bilateral Screening Mammogram, [facility]. 02/28/2022 Bilateral Screening Mammogram, [facility]. Findings: The upper outer quadrant of the right breast was scanned. A complete US upper inner quadrant of the breast. No suspicious mass in area of palpable abnormality. A anechoic 9 x 6 x 1.3 cm cyst with posterior acoustic enhancement is present at 2:00 4 cm from the nipple. No suspicious masses or organizing fluid collection seen on ultrasound. Overall Assessment: Suspicious, BI-RAD 4 Management: Stereotactic Core Biopsy of the right breast. No suspicious ultrasound findings. Same day mammography demonstrates suspicious calcifications and a stereotactic biopsy is recommended. A clinical breast exam by your physician is recommended on an annual basis and results should be correlated with mammographic findings. This exam should not preclude additional follow-up of suspicious palpable abnormalities. Results were given to the patient verbally at the time of exam. Electronically signed and approved by: Cruzito Roy DO
== END | disposition home or self-care (01) ==
LOC: RADMAMWWP 09:54
PROVIDERS: ATTEND Obstetrics & Gynecology
DX: N63.10 Unspecified lump in the right breast, unspecified quadrant (principal); N63.20 Unspecified lump in the left breast, unspecified quadrant; Z80.3 Family history of malignant neoplasm of breast
CPT/HCPCS: 77061; 77065

== ENCOUNTER 2023-02-16 11:16 | Day surgery (SDC) | payer BC ==
[2023-02-13 09:32] VITALS: BMI 37.9
--- NOTE | 2023-02-15 15:51 | P.GSHP ---
History of Present Illness H&P Date: 02/15/23 Chief Complaint: Right breast cancer 42-year-old female initially seen on 01/04. Patient initially had complaints of a palpable mass right breast 11:00. Patient went for mammogram and ultrasound. Ultrasound was benign. Mammogram showed pleomorphic calcifications. Stereota ctic core biopsy was then performed. 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 ER positive NM positive. Patient with family history of breast cancer in her mother and maternal grandmother. Patient states in the past she had some form of genetic testing that was clear. Her case was presented at our multidisciplinary tumor conference. An MRI of the breast was ordered and demonstrated at least 7 x 4 cm enhancement right breast suspicious for malignancy right breast. No other maladies in the left breast were seen. No suspicious adenopathy bilaterally. After MRI patient and I discussed surgical options once again. Patient stated that she was interested in bilateral mastectomy. She was evaluated by plastic surgery and is now scheduled for surgery tomorrow. Formal genetic testing reportedly negative. Past Medical History Past Medical History: Cancer, Osteoarthritis (OA) Additional Past Medical History / Comment(s): migraines, uterine fibroids. RT BREAST CANCER DX History of Any Multi-Drug Resistant Organisms: None Reported Past Surgical History: Hysterectomy, Orthopedic Surgery, Tonsillectomy, Tubal Ligation, Uterine Ablation Additional Past Surgical History / Comment(s): fx left femur repair, arthoscopic left KNEE, right knee surg. Past Anesthesia/Blood Transfusion Reactions: Postoperative Nausea & Vomiting (PONV) Smoking Status: Former smoker - Past Family History Mother Family Medical History: Cancer Additional Family Medical History / Comment(s): breast Father Family Medical History: Cancer Additional Family Medical History / Comment(s): prostate Medications and Allergies Home Medications Medication Instructions Recorded Confirmed Type Multivitamins, Thera [Multivitamin 1 tab PO DAILY 01/05/22 02/13/23 History (formulary)] Naproxen Sodium [Aleve] 220 mg PO Q12HR 01/05/22 02/13/23 History Ubrogepant [Ubrelvy] 100 mg PO DIRECTED PRN 01/05/22 02/13/23 History hydroCHLOROthiazide [Hydrodiuril] 25 mg PO DAILY 12/06/22 02/13/23 History Allergies Allergy/AdvReac Type Severity Reaction Status Date / Time codeine AdvReac Nausea & Verified 02/13/23 09:18 Vomiting Surgical - Exam Physical exam: General: Well-developed, well-nourished HEENT: Normocephalic, sclerae nonicteric Right breast: 1.5 cm mass 11:00 no adenopathy, ecchymosis present Left breast: No palpable masses, no adenopathy Abdomen: Nontender, nondistended Extremities: No edema Neuro: Alert and oriented Assessment and Plan (1) Breast cancer, right Narrative/Plan: 42-year-old female with intermediate grade DCIS right breast. Area large by both mammogram and MRI. Patient scheduled for bilateral skin sparing mastectomy with right axillary sentinel lymph node biopsy with injection along with reconstruction by plastic surgery. Risks of bleeding, infection, scarring, numbness, wound formation, poor healing, nerve injury, weakness, lymphedema, possible need for further surgery, recurrence reviewed. She understands and wishes to proceed. Status: Acute Code(s): C50.911 - MALIGNANT NEOPLASM OF UNSP SITE OF RIGHT FEMALE BREAST SNOMED Code(s): 458478466
[~2023-02-16 11:16] MED LIST changes: +ACETAMINOPHEN TAB 500 MG TAB PO PRN; -Acetaminophen-Codeine 300-30mg TAB PO PRN; -DEXAMETHASONE SOD PHOSPHATE 10 MG/ML 1 ML VIAL IV ONE; +DEXAMETHASONE SOD PHOSPHATE 4 MG/ML 1 ML VIAL IV ONE; +HEPARIN SODIUM,PORCINE/PF 5,000 UNIT/0.5 ML SYRINGE SQ PRN; +HYDROmorphone 0.5 MG/0.5 ML SYRINGE IVP PRN; -IBUPROFEN 600 MG TAB PO PRN; -KETOROLAC 30 MG/ML 1 ML VIAL IVP PRN; -KETOROLAC 30 MG/ML 1 ML VIAL ONE; -LACTATED RINGERS 1,000 ML IV SCH; +LIDOCAINE 1% (10MG/ML) FOR IV START INTRADERMA PRN; -LIDOCAINE 1% 20 ML VIAL (10MG/ML) FOR IV START INTRADERMA PRN; -LIDOCAINE 1% INJ 10MG/ML (20 ML MDV) ONE; -METOCLOPRAMIDE 5 MG/ML 2 ML VIAL IVP PRN; +MIDAZOLAM 2 MG/2 ML VIAL IV PRN; -MIDAZOLAM 2 MG/2 ML VIAL ONE; -ONDANSETRON 4 MG/2 ML VIAL IVP PRN; -PROPOFOL 10 MG/ML 20 ML VIAL IV ONE; -ROCURONIUM BROMIDE 10 MG/ML 10 ML VIAL IV ONE; -SCOPOLAMINE 1.5MG/72HR PATCH TRANSDERM ONE; -SIMETHICONE 80 MG CHEWABLE PO PRN; -SUCCINYLCHOLINE CHLORIDE 100 MG/5 ML SYR IV ONE; -diphenhydrAMINE 50 MG/ML 1 ML VIAL IVP PRN; -fentaNYL (PF) 50 MCG/ML 2 ML AMP IV PRN; -fentaNYL (PF) 50 MCG/ML 2 ML AMP ONE
[2023-02-16] MEDS: LACTATED RINGERS 1,000 ML IV SCH (12:13)
[2023-02-16] MEDS ORDERED: SCOPOLAMINE 1 MG/72 HR PATCH TRANSDERM ONE (12:41)
[2023-02-16] MEDS ORDERED: LIDOCAINE 2% INJ 20 MG/ML (2 ML VIAL) ONE (13:20)
[2023-02-16] MEDS ORDERED: fentaNYL (PF) 50 MCG/ML 2 ML AMP ONE (13:20)
[2023-02-16] MEDS ORDERED: PROPOFOL 10 MG/ML 20 ML VIAL IV ONE (13:20)
[2023-02-16] MEDS ORDERED: MIDAZOLAM 2 MG/2 ML VIAL ONE (13:20)
[2023-02-16] MEDS ORDERED: SUCCINYLCHOLINE CHLORIDE 200 MG/10 ML VIAL IV ONE (13:20)
[2023-02-16] MEDS ORDERED: HYDROmorphone (PF) 1 MG/ML ONE (13:20)
[2023-02-16] MEDS ORDERED: SODIUM CHLORIDE 0.9% 50 ML with ceFAZolin 2,000 MG IV ONE ×2 (13:25)
--- NOTE | 2023-02-16 14:31 | NM ---
EXAMINATION TYPE: NM sentinel node injection DATE OF EXAM: 02/16/2023 COMPARISON: NONE HISTORY: BREAST CANCER 505.11 Z85.3 TECHNIQUE AND FINDINGS: The procedure of sentinel lymph node injection was explained to the patient. The benefits, alternatives, and risks were discussed. An informed consent was then obtained. Overlying skin is cleaned with sterile alcohol. Following this, 565 uCi Tc99m Tilmanocept was inject ed in the upper outer aspect of the right nipple intradermally. The patient tolerated the procedure well without any immediate complication. The patient was kept in the radiology department for short stay after the procedure and then taken to surgery for surgical p rocedure what is presumed intraoperative gamma probe will be used for sentinel lymph node detection. IMPRESSION: Right breast radiotracer injection for sentinel node localization as above.
[2023-02-16] MEDS ORDERED: ONDANSETRON 4 MG/2 ML VIAL IVP PRN (16:04)
[2023-02-16] MEDS ORDERED: HYDROmorphone 1 MG/ML 1 ML SYRINGE IVP PRN (16:04)
[2023-02-16] MEDS ORDERED: NALOXONE 0.4 MG/ML 1 ML VIAL IV PRN (16:04)
[2023-02-16] MEDS ORDERED: ACETAMINOPHEN TAB 325 MG TAB PO PRN (16:04)
[2023-02-16] MEDS ORDERED: HYDROmorphone 0.5 MG/0.5 ML SYRINGE IVP PRN (16:04)
--- NOTE | 2023-02-16 16:12 | P.OP ---
Date of Procedure: 02/16/23 Procedure(s) Performed: PREOPERATIVE DIAGNOSIS: Right breast cancer POSTOPERATIVE DIAGNOSIS: Same PROCEDURE: Bilateral skin sparing mastectomy with sentinel lymph node biopsy right breast, concurrent reconstruction by plastic surgery SURGEON: Cinthya EBL: See separate operative report by Dr. Stuart ANESTHESIA: General COMPLICATIONS: None OPERATIVE PROCEDURE: Patient was placed on the operating room table in the supine position. 2 mL of methylene blue was injected into the right subareolar space. The breast was then massaged for 5 minutes. The upper torso anteriorly was prepped and draped in usual sterile fashion. The left side was first addressed. A skin marker was used to draw out a circular incision around the areola. This incision was then made using the scalpel. Dissection through the subcutaneous tissues took place using electrocautery down to the chest wall circumferentially. The breast was removed from the chest wall at that time. The Ligaclip and LigaSure were used for small visible vessels. No bleeding was encountered. Dr. Stuart from plastic surgery then took over on the left chest wall to begin his reconstruction with tissue expanders. The right side was then addressed. A small curvilinear incision in the right axilla took place over the hot spot identified by neoprobe. The subcutaneous tissues were divided using electrocautery and blunt dissection. A total of 3 blue lymph nodes that were radioactive and also a section of blue lymphatic were identified and removed using electrocautery and LigaSure device. These have benign characteristics. These were sent for permanent sectioning. The area was inspected for bleeding. None was seen. The subcutaneous tissues were closed using 3-0 Vicryl sutures and the skin was then closed using a running 4-0 Monocryl subcuticular suture. Next the right breast was addressed. In a similar fashion the skin marker was used to draw out the proposed incision around the areola. The incision was incised using a scalpel. The skin hooks were utilized and the flaps were raised circumferentially using electrocautery down to the chest wall. The breast was again removed from the chest wall using electrocautery. Small vessels were ligated using the clip oral surgery physician or LigaSure. No bleeding was seen. The right chest wall was then again handed off to Dr. Stuart for formal closure and tissue general intern placement. At that point I exited the room. The family was informed of the progress of surgery. DISPOSITION: Patient to remain in the operating for completion and closure by Dr. Stuart
[2023-02-16] MEDS ORDERED: LACTATED RINGERS 1,000 ML IV ONE (16:27)
[2023-02-16] MEDS ORDERED: HYDROmorphone 0.5 MG/0.5 ML SYRINGE IVP ONE ×2 (16:59→17:11)
[2023-02-16] MEDS ORDERED: ENALAPRILAT 1.25 MG/ML 1 ML VIAL IVP ONE (17:32)
[2023-02-16] MEDS ORDERED: hydrALAZINE HCL 10 MG TAB PO PRN (18:36)
[2023-02-16] MEDS: D5-0.45% NACL WITH KCL 20MEQ/L 1,000 ML IV SCH (19:00)
[2023-02-16] MEDS: FAMOTIDINE 20 MG TAB PO SCH (21:25)
[2023-02-16] MEDS: HEPARIN SODIUM,PORCINE/PF 5,000 UNIT/0.5 ML SYRINGE SQ SCH (23:35)
[2023-02-16] MEDS: HYDROcodone/APAP 5-325MG 1 EACH TAB PO PRN (23:35)
--- NOTE | 2023-02-17 02:16 | OP ---
OPERATIVE REPORT DATE OF SERVICE : 02/16/2023 PREOPERATIVE DIAGNOSES: 1. Breast cancer. 2. Acquired absence right and left breast. POSTOPERATIVE DIAGNOSES: 1. Breast cancer. 2. Acquired absence right and left breast. PROCEDURES PERFORMED: 1. Immediate reconstruction left breast following mastectomy with insertion of tissue senior account clerk and subsequent outpatient expansion. 2. Immediate reconstruction right breast following mastectomy with insertion of tissue senior account clerk, subsequent outpatient expansion. 3. Implantation of reconstructive graft for right and left breast reconstruction. 4. Local advancement flap for right and left breast reconstruction, 65 square cm. OPERATIVE INDICATIONS: The patient is a 42-year-old female with breast cancer of the right breast, is to undergo right and left mastectomies. The patient was referred to my care for breast reconstruction purposes. She has large pendulous breasts with redundant skin, subcutaneous tissue, and ptosis. She would like to proceed with a tissue senior account clerk style reconstruction and understands the staged nature of this type of surgery as well as potential risks and complications related to surgery including, but not limited to, wound healing problems, postoperative infection, hematoma, seroma among others. She has requested perform the surgery. OPERATIVE PROCEDURE SUMMARY: The patient was seen in the preoperative area. Markings were made. Procedure was reviewed. All questions were answered. She was transported to operating room, where she was placed in supine position. Following induction of general endotracheal anesthesia, the patient was prepped and draped in the usual fashion. Dr. Mendes and his team then proceeded with the left-sided mastectomy. Once he completed this procedure and entered the operative suite, Dr. Mendes and his team proceeded with the right-sided sentinel lymph node excision and right mastectomy procedures and initiated left breast reconstruction. The patient's mastectomy site was opened with no active bleeding. Skin flaps were healthy and demonstrated excellent viability. I elected to proceed with prepectoral style implant reconstruction. The patient's mastectomy cavity required additional dissection to optimize fit and position of the senior account clerk, this was completed with cautery above the level of the muscle fascia. Hemostasis maintained with cautery. The cavity was sized. Tissue senior account clerk opened on the field, the left tissue senior account clerk was open at this point, although both expanders open today were the same model and type, #[id number] 750 mL from [employer], reference #[id number]. The left-sided serial number was #[id number], later when the right-sided senior account clerk was opened, the serial number was [id number]. The left-sided senior account clerk was irrigated with saline, all air extracted. The test fit of the senior account clerk was placed in the cavity and additional minor dissections required with cautery. The senior account clerk was then removed, re- irrigated with saline and filled with a volume of air to 400 mL. This was replaced into the cavity and appeared to be the proper amount to allow for closure and the reconstructive purpose. The senior account clerk was removed again, re-irrigated. The senior account clerk was now covered with reconstructive graft. SurgiMend PRS measuring 10 x 20 cm in the package was opened on the field, revitalized and pre-stretched. The SurgiMend PRS mesh was now used to cover the senior account clerk anterior surfaces securing to the suture tabs with 3- 0 Vicryl sutures. The senior account clerk was inserted in the reconstructive cavity with mesh attached and then secured to the patient's chest wall using the suture tabs at the medial superior, medial inferior, medial central, and superior central locations with 2- 0 Vicryl sutures. A 19 round Alfred channel drain inserted in the reconstructive field on the left, brought through separate stab incision, left anterolateral chest wall and sutured in place with 3-0 Prolene. Once the right-sided mastectomy and sentinel lymph node procedure was completed, I initiated the reconstruction on that side. The mastectomy cavity was open with no active bleeding. Dissection was performed to place the senior account clerk in symmetrical location to the left side as well as make sure the fit was optimal. The senior account clerk was opened on the field prior to the dissection here, all air extracted from the senior account clerk, it was placed in cavity to guide whether dissection need to be completed. Once the dissection was complete, the senior account clerk was filled to a volume of 400 mL using air and covered with a reconstructive graft again using the SurgiMend PRS mesh that was revitalized with room temperature saline and pre-stretched. The SurgiMend PRS mesh graft material was secured to the suture tab and senior account clerk using interrupted 3-0 Vicryl sutures. The senior account clerk covered with the graft was now inserted in the reconstructive cavity, orientation ensured under direct vision, again the senior account clerk was secured to the chest wall in 4 locations, medial superior, medial inferior, medial central, superior central, and using 2-0 Vicryl sutures. A 19-round Alfred channel drain inserted in the reconstructive cavity and brought through separate stab incision right anterior lower chest wall, sutured in place with 3-0 Prolene. The patient had significant dog-ears from her surgery, the medial portion of the dog-ear was left at this point, however, the lateral portion on each side was significant and could not be left in place. Dermal subcutaneous tissue flaps were created using the dog-ear tissue based on the cephalad based blood supply, the right side measured 5 x 7 square cm and left side 6 x 5 square cm. Both areas were marked with skin markers. The inferior incision made and then deepithelialization of the tissue performed with a 10 blade scalpel. Hemostasis maintained with cautery. The cephalad based skin dermal flap was then advanced under the inferior edge of the incision made for flap elevation and then the flap inset using 4-0 Monocryl sutures providing sufficient bulk to the lateral aspect without the dog-ear deformity. The remaining open portion of the mastectomy wound sites were closed approximating deep subcutaneous tissue layer with inverted interrupted 4-0 Monocryl in the deep dermis with inverted interrupted 4-0 Monocryl and then completing the closure for the medial lateral flap portion on each side using running 5-0 Prolene. Surgical field was cleansed with saline dried and covered with postoperative bandages using Kerlix squares secured with 3 Medipore tape. Drain sponges were placed and drains were connected to close bulb suction and patent at the end of procedure. The patient was awake in the operating room, extubated, and transferred to recovery room in good condition with stable vital signs. ESTIMATED BLOOD LOSS: 25 mL. COMPLICATIONS: There were no complications. MMODL / IJN: [id number] /
[2023-02-17] MEDS: D5-0.45% NACL WITH KCL 20MEQ/L 1,000 ML IV SCH (03:36)
[2023-02-17] MEDS: HYDROcodone/APAP 5-325MG 1 EACH TAB PO PRN ×2 (03:36→08:04)
[2023-02-17] MEDS: LACTATED RINGERS 1,000 ML IV SCH (04:14)
[2023-02-17] MEDS: FAMOTIDINE 20 MG TAB PO SCH (08:06)
[2023-02-17] MEDS: HEPARIN SODIUM,PORCINE/PF 5,000 UNIT/0.5 ML SYRINGE SQ SCH (08:08)
[2023-02-17 08:55] VITALS: BP 115/75; PULSE 62; RESP 16; TEMP 97.7
[2023-02-17] MEDS ORDERED: hydroCHLOROthiazide 25 MG TAB PO SCH (09:00)
[2023-02-17] MEDS ORDERED: MULTIVITAMINS, THERA 1 EACH TAB PO SCH (09:00)
--- NOTE | 2023-02-17 09:39 | P.DS ---
Providers Expected date of discharge: 02/17/23 Attending physician: Austin Mendes Consults: 02/16/23 16:04 Consult Physician Routine Consulting Provider: Nia Rocha III Consult Reason/Comments: Medical management Do you want consulting provider notified?: Yes Primary care physician: Nia Rocha - Discharge Diagnosis(es) (1) Breast cancer, right Patient was taken to the operative room yesterday and underwent bilateral skin sparing mastectomy with sentinel node on the right. Postoperatively has done well. Pain is well-controlled. She would like to go home today. Dressings were changed. Incisions are clean and dry with no evidence of ischemia or hematoma formation. We'll discharge. Follow-up one week. Current Visit: No Status: Acute Plan - Discharge Summary Discharge Rx Participant: Yes New Discharge Prescriptions: No Action Naproxen Sodium [Aleve] 220 mg PO Q12HR Multivitamins, Thera [Multivitamin (formulary)] 1 tab PO DAILY Ubrogepant [Ubrelvy] 100 mg PO DIRECTED PRN PRN Reason: migraines hydroCHLOROthiazide [Hydrodiuril] 25 mg PO DAILY Discharge Medication List Multivitamins, Thera [Multivitamin (formulary)] 1 tab PO DAILY 01/05/22 [History] Naproxen Sodium [Aleve] 220 mg PO Q12HR 01/05/22 [History] Ubrogepant [Ubrelvy] 100 mg PO DIRECTED PRN 01/05/22 [History] hydroCHLOROthiazide [Hydrodiuril] 25 mg PO DAILY 12/06/22 [History]
--- NOTE | 2023-02-17 18:20 | P.CONS ---
History of Present Illness - Reason for Consult Consult date: 02/17/23 - History of Present Illness This is a 42 year old female with medical history of migraine, breast cancer, uterine fibroids, former smoker. Patient is postoperative day #1 bilateral mastectomy, sentinel lymph node biopsy of the right breast, and concurrent reconstructive surgery by plastic surgery. Preoperatively patient had developed hypertension with blood pressure of 180/93 which prompted this medical consultation. Postoperatively blood pressure has normalized and is currently 115/75. Patients home medication hydrochlorothiazide will be discontinued at this time and recommend close monitoring of blood pressure. Patient has been cleared for discharge today by primary. Patient is evaluated at the bedside today and report pain of about 4-5/10 and down to 2-3/10 with oral pain medication. Using incentive spirometer. No acute events overnight. Medically patient is stable for discharge and recommend to follow up with PCP on discharge next week. REVIEW OF SYSTEMS: CONSTITUTIONAL: No fever, no malaise, no fatigue. HEENT: No recent visual problems or hearing problems. Denied any sore throat. CARDIOVASCULAR: No chest pain, orthopnea, PND, no palpitations, no syncope. PULMONARY: No shortness of breath, no cough, no hemoptysis. GASTROINTESTINAL: No diarrhea, no nausea, no vomiting, no abdominal pain. NEUROLOGICAL: No headaches, no weakness, no numbness. HEMATOLOGICAL: Denies any bleeding or petechiae. GENITOURINARY: Denies any burning micturition, frequency, or urgency. MUSCULOSKELETAL/RHEUMATOLOGICAL: Denies any joint pain, swelling, or any muscle pain. ENDOCRINE: Denies any polyuria or polydipsia. The rest of the 14-point review of systems is negative. PHYSICAL EXAMINATION: GENERAL: The patient is alert and oriented x3, not in any acute distress. Well developed, well nourished. HEENT: Pupils are round and equally reacting to light. EOMI. No scleral icterus. No conjunctival pallor. Normocephalic, atraumatic. No pharyngeal erythema. No thyromegaly. CARDIOVASCULAR: S1 and S2 present. No murmurs, rubs, or gallops. PULMONARY: Chest is clear to auscultation, no wheezing or crackles. ABDOMEN: Soft, nontender, nondistended, normoactive bowel sounds. No palpable organomegaly. MUSCULOSKELETAL: No joint swelling or deformity. EXTREMITIES: No cyanosis, clubbing, or pedal edema. NEUROLOGICAL: Gross neurological examination did not reveal any focal deficits. SKIN: No rashes. Postsurgical changes deferred to primary Assessment and Plan Assessment Right breast cancer postoperative day #1 bilateral mastectomy, lymph node biopsy and rescontructive surgery Hypertension currently normotensive History migraine Former smoker Obesity GI prophylaxis DVT prophylaxis Full Code Plan Hold hydrochlorothiazide and monitor blood pressure resume outpatient Postoperative hypotension can be expected, hypertension has resolved at this time Follow up with primary care on discharge Continue incentive spirometer Pain management and bowel regimen Thank you for this consultation patient is cleared medically for discharge The impression and plan of care has been dictated by Marilin Rene Nurse Practitioner as directed. Dr. Asya MD I have performed a history and physical examination and medical decision making of this patient, discussed the same with the dictator, and agree with the dictators assessment and plan as written, documented as a scribe. Based on total visit time, I have performed more than 50% of this visit. Past Medical History Past Medical History: Cancer, Osteoarthritis (OA) Additional Past Medical History / Comment(s): migraines, uterine fibroids. RT BREAST CANCER DX History of Any Multi-Drug Resistant Organisms: None Reported Past Surgical History: Hysterectomy, Orthopedic Surgery, Tonsillectomy, Tubal Ligation, Uterine Ablation Additional Past Surgical History / Comment(s): fx left femur repair, arthoscopic left KNEE, right knee surg. Past Anesthesia/Blood Transfusion Reactions: Postoperative Nausea & Vomiting (PONV) Past Psychological History: No Psychological Hx Reported Smoking Status: Former smoker Past Alcohol Use History: Occasional Additional Past Alcohol Use History / Comment(s): quit smoking Oct. smoked for 12 yrs Past Drug Use History: None Reported - Past Family History Mother Family Medical History: Cancer Additional Family Medical History / Comment(s): breast Father Family Medical History: Cancer Additional Family Medical History / Comment(s): prostate Medications and Allergies Home Medications Medication Instructions Recorded Confirmed Type Multivitamins, Thera [Multivitamin 1 tab PO DAILY 01/05/22 02/13/23 History (formulary)] Naproxen Sodium [Aleve] 220 mg PO Q12HR 01/05/22 02/13/23 History Ubrogepant [Ubrelvy] 100 mg PO DIRECTED PRN 01/05/22 02/13/23 History hydroCHLOROthiazide [Hydrodiuril] 25 mg PO DAILY 12/06/22 02/13/23 History HYDROcodone/APAP 5-325MG [[place] 1 tab PO Q6HR PRN 3 Days #12 tab 02/17/23 Rx 5-325] Allergies Allergy/AdvReac Type Severity Reaction Status Date / Time codeine AdvReac Nausea & Verified 02/16/23 11:37 Vomiting Physical Exam Vitals: Vital Signs Temp Pulse Resp BP Pulse Ox 02/17/23 08:00 97.7 F 62 16 115/75 97 02/17/23 00:00 97.8 F 58 L 15 113/77 97 02/16/23 20:45 97.8 F 70 15 126/84 97 02/16/23 20:15 82 15 126/79 97 02/16/23 19:45 79 16 128/83 98 02/16/23 19:30 80 15 126/81 97 02/16/23 19:15 80 15 138/88 97 02/16/23 19:00 97.7 F 74 16 149/87 98 02/16/23 18:23 69 20 141/86 96 02/16/23 18:06 140/86 02/16/23 17:55 82 20 138/81 98 02/16/23 17:52 137/76 02/16/23 17:41 139/81 02/16/23 17:40 81 18 96 02/16/23 17:37 80 20 140/84 97 02/16/23 17:25 78 16 153/98 95 02/16/23 17:10 81 18 159/90 97 02/16/23 16:55 97.1 F L 88 16 159/92 93 L 02/16/23 11:44 97.2 F L 83 16 180/93 98 Intake and Output 02/16/23 02/17/23 02/17/23 22:59 06:59 14:59 Intake Total 800 Output Total 520 830 30 Balance 280 -830 -30 Intake: IV 800 Output: Drainage 60 30 30 Bilateral Chest 60 30 30 Urine 350 800 Estimated Blood Loss 110 Other: # Voids 1 2 1 Weight 110.8 kg Assessment and Plan Time with Patient: Less than 30
== END 2023-02-17 11:40 | disposition home or self-care (01) ==
LOC: OR 11:16 → 4FBP 16:44 → OR 02-17 11:40
PROVIDERS: ATTEND Surgery
DX: D05.11 Intraductal carcinoma in situ of right breast (principal); Z85.3 Personal history of malignant neoplasm of breast; I10 Essential (primary) hypertension; E66.9 Obesity, unspecified; M19.90 Unspecified osteoarthritis, unspecified site; Z17.0 Estrogen receptor positive status [ER+]; Z80.3 Family history of malignant neoplasm of breast; Z86.018 Personal history of other benign neoplasm; Z87.891 Personal history of nicotine dependence
CPT/HCPCS: 38792; 19303; 19357; 38900; A9520; J1100; J2405; J0690; J1170; J1644 ×2

== ENCOUNTER → 2023-04-04 | Outpatient (CLI) | payer BC ==
--- NOTE | 2023-04-04 14:28 | CA ---
Transthoracic Echo Report Name: Lenora Otero Age: 42 Gender: F : 1980 Exam Date: 04/04/2023 11:18 Exam Location: [facility] Ht (in): 66 Wt (lb): 232 Ordering Physician: Aroldo Yi MD Attending/Referring Phys: Restoration Officer Ezio Corona RDCS Procedure CPT: Indications: Z01.818 ENCOUNTER FOR OTHER PREPROCEDURAL EXAMINAT Cardiac Hx: Technical Quality: Technically difficult study Contrast 1: Lumason Total Dose (mL): 6 Contrast 2: Total Dose (mL): MEASUREMENTS (Male / Female) Normal Values 2D ECHO LV Diastolic Diameter PLAX 3.7 cm 4.2 - 5.9 / 3.9 - 5.3 cm LV Systolic Diameter PLAX 2.7 cm LV Fractional Shortening PLAX 27.5 % IVS Diastolic Thickness 1.1 cm 0.6 - 1.0 / 0.6 - 0.9 cm IVS Systolic Thickness 1.3 cm LVPW Diastolic Thickness 1.5 cm 0.6 - 1.0 / 0.6 - 0.9 cm LVPW Systolic Thickness 1.5 cm LV Relative Wall Thickness 0.7 RV Internal Dim ED PLAX 2.7 cm LVOT Diameter 2.6 cm LA Systolic Diameter LX 3.3 cm 3.0 - 4.0 / 2.7 - 3.8 cm LV Diastolic Volume MOD BP 42.4 cm??? 67 - 155 / 56 - 104 cm??? LV Systolic Volume MOD BP 14.8 cm??? 22 - 58 / 19 - 49 cm??? LV Ejection Fraction MOD BP 65.1 % >= 55 % LV Stroke Volume MOD BP 27.6 cm??? LV Diastolic Volume MOD 4C 54.6 cm??? LV Systolic Volume MOD 4C 16.8 cm??? LV Ejection Fraction MOD 4C 69.2 % LV Stroke Volume MOD 4C 37.8 cm??? LV Diastolic Length 4C 7.5 cm LV Systolic Length 4C 5.9 cm LV Diastolic Volume MOD 2C 32.5 cm??? LV Systolic Volume MOD 2C 13.1 cm??? LV Ejection Fraction MOD 2C 59.8 % LV Stroke Volume MOD 2C 19.4 cm??? LV Diastolic Length 2C 7.3 cm LV Systolic Length 2C 5.9 cm Ascending Aorta Diameter 2.8 cm M-MODE Aortic Root Diameter MM 3.0 cm LA Systolic Diameter MM 3.0 cm LA Ao Ratio MM 1.0 MV E Point Septal Separation 0.6 cm DOPPLER AV Peak Velocity 116.3 cm/s AV Peak Gradient 5.4 mmHg MV Deceleration Stanly 320.4 cm/s??? Mitral E Point Velocity 66.6 cm/s Mitral A Point Velocity 100.3 cm/s Mitral E to A Ratio 0.7 MV Deceleration Time 207.9 ms MV E' Velocity 5.8 cm/s Mitral E to MV E' Ratio 11.5 TR Peak Velocity 103.4 cm/s TR Peak Gradient 4.3 mmHg Right Ventricular Systolic Press 12.3 mmHg PV Peak Velocity 104.2 cm/s PV Peak Gradient 4.3 mmHg FINDINGS Left Ventricle Left ventricular ejection fraction is estimated at 55 %. Borderline left ventricular hypertrophy. Grade 1 diastolic dysfunction. Normal basal systolic function. Right Ventricle Normal right ventricular size and function. Right Atrium Normal right atrial size. Left Atrium Normal left atrial size. Mitral Valve Structurally normal mitral valve. No mitral stenosis. Trace to mild mitral regurgitation. Aortic Valve Trileaflet aortic valve. No aortic stenosis. No aortic regurgitation. Tricuspid Valve Mild tricuspid regurgitation. Pulmonic Valve Pulmonic valve not well visualized. Pericardium Minimal pericardial effusion (normal variant). Aorta Normal size aortic root and proximal ascending aorta. CONCLUSIONS Left ventricular ejection fraction 55% Normal right ventricular size and function Trace to mild mitral regurgitation Minimal pericardial effusion Previewed by: Dr. Agustin Cho DO (Electronically Signed) Final Date: 04 Apr 2023 14:27
== END | disposition home or self-care (01) ==
LOC: RADECHMAIN 10:52
PROVIDERS: ATTEND Internal Medicine
DX: Z01.818 Encounter for other preprocedural examination (principal); C50.811 Malignant neoplasm of overlapping sites of right female breast; I10 Essential (primary) hypertension; I34.0 Nonrheumatic mitral (valve) insufficiency; I31.39 Other pericardial effusion (noninflammatory); Z71.3 Dietary counseling and surveillance
CPT/HCPCS: 93306; Q9950

== ENCOUNTER → 2023-04-10 | Day surgery (SDC) | payer BC ==
[2023-04-06 16:01] VITALS: BMI 37.5
[~2023-04-10] MED LIST changes: +HEPARIN SODIUM,PORCINE 100 UNIT/ML 5 ML VIAL IV ONE; +HEPARIN SODIUM,PORCINE 5,000 UNIT/ML 1 ML VIAL SQ ONE; +HYDROcodone/APAP 5-325MG 1 EACH TAB PO PRN; +LACTATED RINGERS 1,000 ML IV SCH; +LIDOCAINE (PF) 10 MG/ML 2 ML VIAL SQ ONE; +LIDOCAINE 2% INJ 20 MG/ML (2 ML VIAL) ONE; +MIDAZOLAM 2 MG/2 ML VIAL ONE; +NALOXONE 0.4 MG/ML 1 ML VIAL IV PRN; +PROPOFOL 10 MG/ML 20 ML VIAL IV ONE; +SCOPOLAMINE 1 MG/72 HR PATCH TRANSDERM ONE; +SODIUM CHLORIDE 0.9% 50 ML with ceFAZolin 2,000 MG IV ONE; +fentaNYL (PF) 50 MCG/ML 2 ML AMP ONE
--- NOTE | 2023-04-10 12:17 | P.GSHP ---
History of Present Illness H&P Date: 04/10/23 Chief Complaint: Right breast cancer 42-year-old female previously diagnosed with right breast cancer. Patient underwent bilateral mastectomy with reconstruction. Decision has been made to proceed with adjuvant chemotherapy. Here today for Port-A-Cath placement. Past Medical History Past Medical History: Cancer, Osteoarthritis (OA) Additional Past Medical History / Comment(s): Right breast cancer. Migraines. Uterine fibroids. History of Any Multi-Drug Resistant Organisms: None Reported Past Surgical History: Breast Surgery, Hysterectomy, Orthopedic Surgery, Tonsillectomy, Tubal Ligation, Uterine Ablation Additional Past Surgical History / Comment(s): Bilateral mastectomy, fractured left femur repair, left knee arthoscopy, right knee surgery. Past Anesthesia/Blood Transfusion Reactions: Motion Sickness, Postoperative Nausea & Vomiting (PONV) Past Psychological History: No Psychological Hx Reported Smoking Status: Former smoker Past Alcohol Use History: Occasional Additional Past Alcohol Use History / Comment(s): Quit smoking Nov 02, 2006, smoked for 12 yrs. Past Drug Use History: None Reported - Past Family History Mother Family Medical History: Cancer Additional Family Medical History / Comment(s): Breast cancer. Father Family Medical History: Cancer Additional Family Medical History / Comment(s): Prostate cancer. Medications and Allergies Home Medications Medication Instructions Recorded Confirmed Type Ubrogepant [Ubrelvy] 100 mg PO DIRECTED PRN 01/05/22 04/06/23 History hydroCHLOROthiazide [Hydrodiuril] 25 mg PO DAILY 12/06/22 04/06/23 History Allergies Allergy/AdvReac Type Severity Reaction Status Date / Time codeine AdvReac Nausea & Verified 04/10/23 11:22 Vomiting Surgical - Exam Vital Signs Temp Pulse Resp BP Pulse Ox 98.2 F 93 16 165/96 98 04/10/23 11:28 04/10/23 11:28 04/10/23 11:28 04/10/23 11:28 04/10/23 11:28 Physical exam: General: Well-developed, well-nourished HEENT: Normocephalic, sclerae nonicteric Abdomen: Nontender, nondistended Extremities: No edema Neuro: Alert and oriented Assessment and Plan (1) Breast cancer, right Narrative/Plan: 42-year-old female with right breast cancer. We'll proceed with Port-A-Cath placement at this time. Risks of bleeding, infection, DVT, pneumothorax, catheter malfunction, anesthesia related complications were discussed. The patient understands and wishes to proceed. Current Visit: No Status: Acute Code(s): C50.911 - MALIGNANT NEOPLASM OF UNSP SITE OF RIGHT FEMALE BREAST SNOMED Code(s): 455931970
--- NOTE | 2023-04-10 14:32 | P.OP ---
Date of Procedure: 04/10/23 Procedure(s) Performed: PREOPERATIVE DIAGNOSIS: Right breast cancer POSTOPERATIVE DIAGNOSIS: Same PROCEDURE: Port-A-Cath placement with fluoroscopic and ultrasound guidance SURGEON: Cinthya EBL: Minimal ANESTHESIA: Sedation COMPLICATIONS: None OPERATIVE PROCEDURE: Patient was brought and placed on the operative table in the supine position. The patient was sedated per anesthesia that time. The chest and neck were prepped and draped in usual sterile fashion. The ultrasound probe was used to identify the location of the left internal jugular vein. The skin was localized with lidocaine. The Seldinger needle was advanced into the IJ under ultrasound guidance. The wire was advanced through the needle under fluoroscopic guidance into the superior vena cava. A port pocket was created in the left infraclavicular location. The catheter was tunneled from the wire entrance site to the port pocket. The port was then connected to the catheter. The dilator introducer was threaded over the guidewire. The guidewire and dilator were then removed. The catheter was advanced through the introducer and introducer was then removed. The tip was seen to be in the right atrial junction via fluoroscopy. A picture of the radiograph showing the tip at the radial digital junction was taken. Port was flushed with both saline and a Hep- Lock solution. There was good flow both in and out of the port. The port was sutured in underlying tissues using 3-0 silk sutures. The subcutaneous tissues were reapproximated using 3-0 Vicryl sutures and the skin at both locations using 4-0 Monocryl sutures. Skin glue and sterile dressings then applied. DISPOSITION: Stable to recovery room
[2023-04-10 14:36] VITALS: TEMP 96.8
[2023-04-10 14:47] VITALS: RESP 16
--- NOTE | 2023-04-10 15:24 | XR ---
EXAMINATION TYPE: XR chest 1V confirm line cox monett DATE OF EXAM: 04/10/2023 COMPARISON: None INDICATION: Line placement TECHNIQUE: Single frontal view of the chest is obtained. FINDINGS: The heart size is normal. The pulmonary vasculature is normal. The lungs are clear. There is placement of a left central venous catheter with the tip in the region of the superior vena cava. No pneumothorax is evident. IMPRESSION: 1. No acute pulmonary process. 2. Left side catheter with tip in the superior vena cava.
[2023-04-10 16:01] VITALS: BP 148/91; PULSE 85
--- NOTE | 2023-04-10 18:34 | FL ---
EXAMINATION TYPE: FL guided central line placemt DATE OF EXAM: 04/10/2023 FLUOROSCOPY Fluoroscopy time of 14 seconds was used during left-sided Port-A-Cath insertion. 2 image/s document/ s the procedure. DOSE AREA PRODUCT (DAP) UGY*M,MGY*CM: 0.1578
== END ==
LOC: OR 11:06
PROVIDERS: ATTEND Surgery
DX: Z45.2 Encounter for adjustment and management of vascular access device (principal); C50.911 Malignant neoplasm of unspecified site of right female breast; I10 Essential (primary) hypertension; M19.90 Unspecified osteoarthritis, unspecified site; G43.909 Migraine, unspecified, not intractable, without status migrainosus; F10.20 Alcohol dependence, uncomplicated; Z90.13 Acquired absence of bilateral breasts and nipples; Z87.891 Personal history of nicotine dependence; Z80.3 Family history of malignant neoplasm of breast; Z88.5 Allergy status to narcotic agent; Z79.899 Other long term (current) drug therapy
CPT/HCPCS: 77001; 36561; 76937; C1788; J2250; J2001 ×2; J1644; J1642; J1100; J2405; J0690; J3010; J2704

== ENCOUNTER 2023-04-22 10:57 | Emergency (ER) | payer BC ==
[2023-04-22 11:12] VITALS: PULSE 92; TEMP 98
[2023-04-22] MEDS ORDERED: LIDOCAINE-PRILOCAINE 2.5-2.5% CREAM 5 GM TUBE TOPICAL STA (11:35)
--- NOTE | 2023-04-22 11:40 | ED ---
Skin/Abscess/FB HPI - General Chief complaint: Skin/Abscess/Foreign Body Stated complaint: post op infected incision Time Seen by Provider: 04/22/23 11:28 Source: patient, RN notes reviewed, old records reviewed Mode of arrival: ambulatory Limitations: no limitations - History of Present Illness Initial comments: 42-year-old female presents to the emergency room with complaints of right breast tenderness with concern for an abscess that she noticed yesterday. 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 She is receiving chemotherapy and had her first dose Sunday via mediport. She denies any fevers. No chest pain, nausea or vomiting. MD complaint: abscess/boil -: days(s) (2) Location: genitals (right breast) Severity scale (1-10): 1 Worsens with: palpation Context: other (Right mastectomy, filler placed on Sunday, abscess formed yeste ) Associated symptoms: denies other symptoms Treatments Prior to Arrival: none - Related Data Home Medications Medication Instructions Recorded Confirmed Ubrogepant [Ubrelvy] 100 mg PO DIRECTED PRN 01/05/22 04/06/23 hydroCHLOROthiazide [Hydrodiuril] 25 mg PO DAILY 12/06/22 04/06/23 Previous Rx's Medication Instructions Recorded HYDROcodone/APAP 5-325MG [[place] 1 tab PO Q6HR PRN 3 Days #6 tab 04/10/23 5-325] oxyCODONE HCL [OxyIR] 5 mg PO Q6H PRN 3 Days #6 tab 04/10/23 Cephalexin [Keflex] 500 mg PO Q6HR 10 Days #40 cap 04/22/23 Allergies Allergy/AdvReac Type Severity Reaction Status Date / Time codeine AdvReac Nausea & Verified 04/22/23 11:12 Vomiting Review of Systems ROS Statement: Those systems with pertinent positive or pertinent negative responses have been documented in the HPI. ROS Other: All systems not noted in ROS Statement are negative. Past Medical History Past Medical History: Cancer, Osteoarthritis (OA) Additional Past Medical History / Comment(s): Right breast cancer. Migraines. Uterine fibroids. History of Any Multi-Drug Resistant Organisms: None Reported Past Surgical History: Breast Surgery, Hysterectomy, Orthopedic Surgery, Tonsillectomy, Tubal Ligation, Uterine Ablation Additional Past Surgical History / Comment(s): Bilateral mastectomy, fractured left femur repair, left knee arthoscopy, right knee surgery. Past Anesthesia/Blood Transfusion Reactions: Motion Sickness, Postoperative Nausea & Vomiting (PONV) Past Psychological History: No Psychological Hx Reported Smoking Status: Former smoker Past Alcohol Use History: Occasional Past Drug Use History: None Reported - Past Family History Mother Family Medical History: Cancer Additional Family Medical History / Comment(s): Breast cancer. Father Family Medical History: Cancer Additional Family Medical History / Comment(s): Prostate cancer. General Exam Limitations: no limitations General appearance: alert, in no apparent distress Head exam: Present: atraumatic Eye exam: Present: normal appearance. Absent: scleral icterus, conjunctival injection, periorbital swelling, periorbital tenderness ENT exam: Present: mucous membranes moist Respiratory exam: Absent: respiratory distress, accessory muscle use Cardiovascular Exam: Present: regular rate Extremities exam: Present: normal capillary refill. Absent: pedal edema Neurological exam: Present: alert, oriented X3 Psychiatric exam: Present: normal affect, normal mood Skin exam: Present: warm, dry, normal color, other (3 cm area of errythema with 1cm fluctuant abscess). Absent: cyanosis, diaphoretic, erythema, pallor, mottled Course Vital Signs 04/22/23 04/22/23 11:09 13:01 Temperature 98.0 F Pulse Rate 92 Respiratory 20 18 Rate Blood Pressure 148/101 131/86 O2 Sat by Pulse 98 Oximetry Medical Decision Making - Medical Decision Making Was pt. sent in by a medical professional or institution (, PA, WET PROCESS ASSISTANT HEAD MILLER, urgent care, hospital, or snf...) When possible be specific @ -No Did you speak to anyone other than the patient for history (EMS, parent, family, police, friend...)? What history was obtained from this source @ -No Did you review nursing and triage notes (agree or disagree)? Why? @ -I reviewed and agree with nursing and triage notes Were old charts reviewed (outside hosp., previous admission, EMS record, old EKG, old radiological studies, urgent care reports/EKG's, snf records)? Report findings @ -No old charts were reviewed Differential Diagnosis (chest pain, altered mental status, abdominal pain women, abdominal pain men, vaginal bleeding, weakness, fever, dyspnea, syncope, headache, dizziness, GI bleed, back pain, seizure, CVA, palpatations, mental health, musculoskeletal)? @ -Abscess, cellulitis, surgical wound dehiscence EKG interpreted by me (3pts min.). @ -n/a X-rays interpreted by me (1pt min.). @ -None done CT interpreted by me (1pt min.). @ -None done U/S interpreted by me (1pt. min.). @ -None done What testing was considered but not performed or refused? (CT, X-rays, U/S, labs)? Why? @ -None What meds were considered but not given or refused? Why? @ -None Did you discuss the management of the patient with other professionals (professionals i.e. , PA, WET PROCESS ASSISTANT HEAD MILLER, lab, RT, psych nurse, social media content manager, farm machinery erector, teacher, enforcement safety officer, case checker)? Give summary @ -No Was smoking cessation discussed for >3mins.? @ -No Was critical care preformed (if so, how long)? @ -No Were there social determinants of health that impacted care today? How? (Homelessness, low income, unemployed, alcoholism, drug addiction, transportation, low edu. Level, literacy, decrease access to med. care, [place] [facility], rehab)? @ -No Was there de-escalation of care discussed even if they declined (Discuss DNR or withdrawal of care, Hospice)? DNR status @ -No What co-morbidities impacted this encounter? (DM, HTN, Smoking, COPD, CAD, Cancer, CVA, ARF, Chemo, Hep., AIDS, mental health diagnosis, sleep apnea, morbid obesity)? @ -Breast cancer, obesity, migraines Was patient admitted / discharged? Hospital course, mention meds given and route, prescriptions, significant lab abnormalities, going to OR and other pertinent info. @ -Discharged. 42-year-old female presents to the emergency room with complaints of right breast tenderness with concern for an abscess that she noticed yesterday. 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 She is receiving chemotherapy and had her first dose Sunday via mediport. She denies any fevers. No chest pain, nausea or vomiting. On physical exam there is a 3 cm area of induration surrounding a fluid filled blister to the medial aspect of surgical scar right breast. Needle aspiration performed revealing 1cc of sanguinous fluid which was sent for culture. Labs show a leukocytosis of 14.3 with a left shift. Denies any fevers. Patient was given a gram of Rocephin due to her immune compromised state. She was put on Keflex and directed to return with any new or concerning symptoms including increased pain and swelling or fevers. She is agreeable to this plan of care. Case discussed with Dr. Gabriel Undiagnosed new problem with uncertain prognosis? @ -No Drug Therapy requiring intensive monitoring for toxicity (Heparin, Nitro, Insulin, Cardizem)? @ -No Were any procedures done? @ -Needle aspiration right breast, EMLA cream applied prior to needle aspiration Diagnosis/symptom? @ -Cellulitis Acute, or Chronic, or Acute on Chronic? @ -Acute Uncomplicated (without systemic symptoms) or Complicated (systemic symptoms)? @ -Uncomplicated Side effects of treatment? @ -No Exacerbation, Progression, or Severe Exacerbation? @ -No Poses a threat to life or bodily function? How? (Chest pain, [place], AR, pneumonia, PE, COPD, DKA, ARF, appy, cholecystitis, CVA, Diverticulitis, Homicidal, Suicidal, threat to staff... and all critical care pts) @ -No - Lab Data Result diagrams: 04/22/23 12:23 Lab Results 04/22/23 Range/Units 12:23 WBC 14.3 H (3.8-10.6) k/uL RBC 4.22 (3.80-5.40) m/uL Hgb 13.5 (11.4-16.0) gm/dL Hct 39.6 (34.0-46.0) % MCV 93.9 (80.0-100.0) fL MCH 31.9 (25.0-35.0) pg MCHC 34.0 (31.0-37.0) g/dL RDW 12.7 (11.5-15.5) % Plt Count 294 (150-450) k/uL MPV 7.3 Neutrophils % 84 % Lymphocytes % 12 % Monocytes % 1 % Eosinophils % 2 % Basophils % 1 % Neutrophils # 12.0 H (1.3-7.7) k/uL Lymphocytes # 1.7 (1.0-4.8) k/uL Monocytes # 0.2 (0-1.0) k/uL Eosinophils # 0.3 (0-0.7) k/uL Basophils # 0.1 (0-0.2) k/uL Disposition Clinical Impression: Cellulitis of right breast Disposition: HOME SELF-CARE Condition: Good Instructions (If sedation given, give patient instructions): Cellulitis (ED) Additional Instructions: Take antibiotics as prescribed and follow-up with your primary care doctor on Sunday. Return to the emergency room with any new or concerning symptoms including increased swelling, redness or fevers. Prescriptions: Cephalexin [Keflex] 500 mg PO Q6HR 10 Days #40 cap Is patient prescribed a controlled substance at d/c from ED?: No Referrals: Nia Rocha III, MD [Primary Care Provider] - 1-2 days Time of Disposition: 13:03
[2023-04-22 12:42] LABS: Basophils # (A) 0.1 k/uL (0-0.2); Basophils % (A) 1 %; Eosinophils # (A) 0.3 k/uL (0-0.7); Eosinophils % (A) 2 %; HCT 39.6 % (34.0-46.0); HGB 13.5 gm/dL (11.4-16.0); Lymphocytes # (A) 1.7 k/uL (1.0-4.8); Lymphocytes % (A) 12 %; MCH 31.9 pg (25.0-35.0); MCV 93.9 fL (80.0-100.0); Mean Platelet Volume 7.3; Monocytes # (A) 0.2 k/uL (0-1.0); Monocytes % (A) 1 %; Neutrophils % (A) 84 %; Platelet Count 294 k/uL (150-450); RBC 4.22 m/uL (3.80-5.40); RDW 12.7 % (11.5-15.5); WBC 14.3 k/uL (3.8-10.6)
[2023-04-22] MEDS ORDERED: cefTRIAXone IN SWFI 1,000 MG/10 ML SYRINGE IVP STA (12:54)
[2023-04-22 13:05] VITALS: BP 131/86; RESP 18
== END 2023-04-22 13:48 | disposition home or self-care (01) ==
LOC: EC 10:57
DX: N61.0 Mastitis without abscess (principal); Z87.891 Personal history of nicotine dependence
CPT/HCPCS: 36415; 85025; 87070; 87205; 99283; J0696; J1642

== ENCOUNTER 2023-04-30 09:49 | Day surgery (SDC) | payer BC ==
[2023-04-26 15:40] VITALS: BMI 39.2
[2023-04-30 10:07] VITALS: BP 138/90; PULSE 79; RESP 18; TEMP 98
[2023-04-30] MEDS ORDERED: SODIUM CHLORIDE 0.9% 500 ML 500 ML IV ONE (10:07)
[2023-04-30] MEDS ORDERED: IOPAMIDOL-370 100ML BTL INJ ONE ×2 (11:00→11:04)
--- NOTE | 2023-04-30 11:22 | IR ---
Fluoroscopic portogram([facility]). HISTORY: Device malfunction. The patient presented to the CVL with a Rivera needle within the port. Preliminary fluoroscopy demonst rated the catheter to be intact. 0.310 Gycm2. IMPRESSION: 1. No obstruction or extravasation. See above.
== END 2023-04-30 11:20 | disposition home or self-care (01) ==
LOC: CATHCVL 09:49
PROVIDERS: ATTEND Radiology Diagnostic Radiology
DX: Z45.2 Encounter for adjustment and management of vascular access device (principal); C50.911 Malignant neoplasm of unspecified site of right female breast; Z90.13 Acquired absence of bilateral breasts and nipples; M19.90 Unspecified osteoarthritis, unspecified site; G43.909 Migraine, unspecified, not intractable, without status migrainosus; F10.90 Alcohol use, unspecified, uncomplicated; Z87.891 Personal history of nicotine dependence; Z88.5 Allergy status to narcotic agent; Z79.899 Other long term (current) drug therapy
CPT/HCPCS: 36598; Q9967

== ENCOUNTER → 2023-11-30 | Outpatient (CLI) | payer BC ==
[2023-11-30 16:28] LABS: Basophils # (A) 0.09 X 10*3/uL (0.00-0.10); Basophils % (A) 1.3 %; Eosinophils # (A) 0.39 X 10*3/uL (0.04-0.35); Eosinophils % (A) 5.8 %; HCT 44.2 % (37.2-46.3); HGB 14.9 g/dL (12.0-15.0); Lymphocytes # (A) 0.75 X 10*3/uL (0.90-5.00); Lymphocytes % (A) 11.2 %; MCH 29.3 pg (27.0-32.0); MCHC 33.7 g/dL (32.0-37.0); Mean Platelet Volume 10.2 FL (9.5-12.2); NRBC Per 100 WBC 0 X 10*3/uL (0.00-0.01); Neutrophils # (A) 4.83 X 10*3/uL (1.80-7.70); Neutrophils % (A) 72.4 %; Platelet Count 309 X 10*3/uL (140-440); RBC 5.08 X 10*6/uL (4.10-5.20); RDW 14.5 % (11.5-14.5); WBC 6.68 X 10*3/uL (4.50-10.00)
== END | disposition home or self-care (01) ==
LOC: LABWHC1 10:55
PROVIDERS: ATTEND Obstetrics & Gynecology
DX: Z01.818 Encounter for other preprocedural examination (principal); C50.919 Malignant neoplasm of unspecified site of unspecified female breast; I10 Essential (primary) hypertension
CPT/HCPCS: 36415; 85025; 93005

== ENCOUNTER → 2023-12-05 | Outpatient (CLI) | payer BC ==
--- NOTE | 2023-12-05 12:00 | XR ---
EXAMINATION TYPE: XR chest 2V DATE OF EXAM: 12/05/2023 COMPARISON: 04/10/2023 INDICATION: Presurgical evaluation TECHNIQUE: Frontal and lateral views of the chest are obtained. FINDINGS: The heart size is normal. The pulmonary vasculature is normal. The lungs are clear. Bilateral breast prosthesis IMPRESSION: 1. No acute pulmonary process.
== END | disposition home or self-care (01) ==
LOC: RADXRMAIN 11:21
PROVIDERS: ATTEND Anesthesiology
DX: Z01.818 Encounter for other preprocedural examination (principal); Z92.3 Personal history of irradiation
CPT/HCPCS: 71046

== ENCOUNTER 2023-12-10 09:47 | Inpatient (IN) | payer BC ==
--- NOTE | 2023-12-07 13:53 | HP ---
HISTORY AND PHYSICAL DATE OF SCHEDULED SURGERY: 12/10/2023. HISTORY OF PRESENT ILLNESS: The patient is a 43-year-old woman, 0, para 0, who presents to the office with history of an ER/CA positive breast cancer and is status post bilateral mastectomy with subsequent chemotherapy and radiation. Her oncologist has recommended that she undergo bilateral oophorectomy as she has previously had a total abdominal hysterectomy and bilateral salpingectomy. PAST MEDICAL HISTORY: Significant for asthma in the past. She otherwise has known hypothyroidism and the diagnosis of breast cancer as noted above. PAST SURGICAL HISTORY: Significant for hysteroscopy with NovaSure endometrial ablation, knee surgeries on several different occasions through the history. ELIZABETH with bilateral salpingectomy in 2021, tonsillectomy and tubal ligation in the past as well as now bilateral mastectomy with reconstructive surgery. There have been no anesthetic concerns. OBSTETRICAL HISTORY: 0, para 0. GYNECOLOGIC HISTORY: Unremarkable with no history of recent infection, so she has remote history of chlamydia which was treated and cured. Otherwise, her gynecologic history is as noted in history of present illness. FAMILY HISTORY: Noncontributory. 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 She is a nonsmoker though she did smoke in the past. She reports occasional alcohol. No other social concerns. CURRENT MEDICATIONS: Includes Saxenda weekly. ALLERGIES: To codeine and Darvocet which cause nausea. REVIEW OF SYSTEMS: Confined to history of present illness. PHYSICAL EXAMINATION: VITAL SIGNS: Stable and the patient is afebrile. GENERAL: This is a well-developed, well-nourished white female, in no acute distress. HEART: Has a regular rhythm and rate without murmur. LUNGS: Clear to auscultation bilaterally in all frankel. ABDOMEN: Nondistended, has normoactive bowel sounds, soft, nontender, and without any palpable masses, hepatosplenomegaly, or hernias. EXTREMITIES: Without any cyanosis, clubbing, or edema and are nontender to palpation bilaterally. PELVIS: Demonstrates an absent uterus with nonpalpable adnexa bilaterally without any apparent masses. ASSESSMENT AND PLAN: History of breast cancer: Given the patient's previous ELIZABETH and bilateral salpingectomy and now her diagnosis of breast cancer as noted above, the recommendation has been made to have bilateral oophorectomy. We will approach this laparoscopically and perform laparoscopic BSO with possible open BSO should it become necessary. The risks and complications of the procedure have been thoroughly discussed including risk for bleeding, bleeding requiring transfusion, infection, and injury to local structures which could potentially include the bowel, bladder, and ureters. She has understood all this and agreed to proceed. We are scheduled for this procedure on the morning of 12/10/2023. MMODL / IJN: [id number] /
[~2023-12-10 09:47] MED LIST changes: -ACETAMINOPHEN TAB 500 MG TAB PO PRN; -HEPARIN SODIUM,PORCINE 100 UNIT/ML 5 ML VIAL IV ONE; -HEPARIN SODIUM,PORCINE 5,000 UNIT/ML 1 ML VIAL SQ ONE; -HEPARIN SODIUM,PORCINE/PF 5,000 UNIT/0.5 ML SYRINGE SQ PRN; -HYDROcodone/APAP 5-325MG 1 EACH TAB PO PRN; -HYDROmorphone 0.5 MG/0.5 ML SYRINGE IVP PRN; -LACTATED RINGERS 1,000 ML IV SCH; -LIDOCAINE (PF) 10 MG/ML 2 ML VIAL SQ ONE; -LIDOCAINE 2% INJ 20 MG/ML (2 ML VIAL) ONE; -MIDAZOLAM 2 MG/2 ML VIAL ONE; -NALOXONE 0.4 MG/ML 1 ML VIAL IV PRN; -PROPOFOL 10 MG/ML 20 ML VIAL IV ONE; -SCOPOLAMINE 1 MG/72 HR PATCH TRANSDERM ONE; -SODIUM CHLORIDE 0.9% 50 ML with ceFAZolin 2,000 MG IV ONE; -fentaNYL (PF) 50 MCG/ML 2 ML AMP ONE
[2023-12-10] MEDS: LACTATED RINGERS 1,000 ML IV SCH ×2 (10:14→15:56)
[2023-12-10] MEDS ORDERED: ONDANSETRON 4 MG/2 ML VIAL IVP ONE (10:42)
[2023-12-10] MEDS ORDERED: DEXAMETHASONE SOD PHOSPHATE 4 MG/ML 1 ML VIAL IVP ONE (10:43)
[2023-12-10] MEDS ORDERED: fentaNYL (PF) 50 MCG/ML 2 ML AMP ONE (11:49)
[2023-12-10] MEDS ORDERED: HYDROmorphone (PF) 1 MG/ML ONE (11:49)
[2023-12-10] MEDS ORDERED: NEOSTIGMINE 1 MG/ML 10 ML VIAL ONE (11:49)
[2023-12-10] MEDS ORDERED: GLYCOPYRROLATE 0.2 MG/ML 2 ML VIAL ONE (11:49)
[2023-12-10] MEDS ORDERED: ROCURONIUM 10 MG/ML (5 ML VIAL) IV ONE (11:49)
[2023-12-10] MEDS ORDERED: LIDOCAINE 1% INJ 10MG/ML (20 ML MDV) ONE (11:49)
[2023-12-10] MEDS ORDERED: MIDAZOLAM 2 MG/2 ML VIAL ONE (11:49)
[2023-12-10] MEDS ORDERED: PROPOFOL 10 MG/ML 20 ML VIAL IV ONE (11:49)
[2023-12-10] MEDS ORDERED: SUCCINYLCHOLINE CHLORIDE 200 MG/10 ML VIAL IV ONE (11:49)
[2023-12-10] MEDS ORDERED: METOCLOPRAMIDE 5 MG/ML 2 ML VIAL IVP PRN (13:35)
[2023-12-10] MEDS ORDERED: diphenhydrAMINE 50 MG/ML 1 ML VIAL IVP PRN (13:35)
[2023-12-10] MEDS ORDERED: ONDANSETRON 4 MG/2 ML VIAL IVP PRN (13:35)
[2023-12-10] MEDS ORDERED: SIMETHICONE 80 MG CHEWABLE PO PRN (13:35)
[2023-12-10] MEDS ORDERED: HYDROmorphone PCA 10 MG/50 ML BAG IV PRN (13:37)
[2023-12-10] MEDS ORDERED: NALOXONE 0.4 MG/ML 1 ML VIAL IV PRN (13:37)
--- NOTE | 2023-12-10 13:49 | P.OP ---
Date of Procedure: 12/10/23 Preoperative Diagnosis: #1. History of ER/KS positive breast cancer Postoperative Diagnosis: Same Procedure(s) Performed: #1. Laparoscopic right oophorectomy #2. Exploratory laparotomy #3. Lysis of adhesions Anesthesia: LORA Surgeon: Misael Gifford Pharmacy Benefit Manager #1: Katrin Ramirez Estimated Blood Loss (ml): 50 IV fluids (ml): 1,100 Urine output (ml): 100 Pathology: other (Right ovary) Condition: stable Disposition: PACU Operative Findings: Using the laparoscope, the right ovary was easily identified and removed without difficulty. There was a significant amount of sigmoidal adhesion to the ante rior abdominal wall and left lateral pelvic sidewall from low in the pelvis all the way up the lateral abdomen. Laparoscopic attempts to take it down were unsuccessful. We were unable to identify and ovary using the laparoscope. As a result the procedure was converted to laparotomy. Blunt and sharp dissection were utilized to free some of the sigmoid colon from the lateral pelvis from the pelvic brim into the pelvis. The ovary was neither identified visually nor digitally with my hands. Neither myself normal eye partner were able to identify and ovary on the left side. As a result, further dissection and probing was abandoned. The urine was clear throughout the entire case. She did have a significant amount of scarring at the level of the fascia and rectus muscles. Description of Procedure: The patient was prepped and draped in usual fashion after general endotracheal anesthesia was administered by the anesthesiologist. A site was selected approximately 2 cm above the umbilicus where a 5 m incision was made the transverse plane allowing insertion of a 5 mm optical trocar under direct visualization without difficulty. A pneumoperitoneum was established and the adhesive disease was noted on the left side. A clear site was selected very low in the left lower quadrant where a 5 mm incision was made in the transverse plane allowing placement of a defibrillator optical trocar under direct visualization without difficulty. The probe was utilized and we were unable to sweep the bowel from the pelvis or breakdown any of the adhesive disease. A site was selected in the right lower quadrant where a 10 mm incision was made in the transverse plane allowing insertion of a 10 mm optical trocar without difficulty. Utilizing the blunt probe or grasper as well as a LigaSure device some of the adhesions were freed from the anterior abdominal wall. Further dissection was thought to be unsafe. A general surgeon was brought to the room and his opinion was that the safest course would be to open. As a result, the case was converted to laparotomy. A Pfannenstiel incision was made through pre- existing scar using approximately two thirds of it to enter the abdomen. There was a significant and significantly dense amount of scarring noted at the level of the fascia and rectus muscles such that the midline was extraordinarily difficult to even identify. Once entered into the abdomen, the incision was opened in standard fashion. A Vanlue was placed into the wound and exploration of the pelvis carried out. I was unable to identify and ovary on the left side. The right ovary which had been previously removed and placed in the pelvis was removed and sent for pathological diagnoses. Blunt and sharp dissection in and around the sigmoid colon was carried out and further exploration carried out from the pelvic brim down into the pelvis. I was never able to identify either by feel or visually anything ovarian in nature. My partner was similarly unable to identify and ovary and the assumption was made that either it had been removed previously or perhaps at its blood supply compromise such that it was atrophic and nonpalpable. A significant amount time was spent searching but ultimately the search was abandoned. All instrumentation was then removed and the parietal peritoneum loosely reapproximated. The layer of muscles made hemostatic with the Bovie. The fascia was closed with a single running stitch of 0 Vicryl proceeding from margin to margin. The subcutaneous tissues were made hemostatic with the Bovie and reapproximated with a running stitch of 2-0 Vicryl. The skin was approximated with a running subcuticular stitch of 4-0 Vicryl. The previous 3 laparoscopic incisions had been previously closed with interrupted subcuticular stitches of 4-0 Vicryl. All of the incisions were covered with Steri-Strips using Mastisol and then dressed appropriately. Estimated blood loss for the case is approximately 50 mL. There were no complications aside from the need to convert to laparotomy and the inability to find a left ovary. All sponge, instrument, needle counts were correct. The patient tolerated the procedure well and proceeded to the recovery room in stable condition.
[2023-12-10] MEDS: HYDROmorphone 0.5 MG/0.5 ML SYRINGE IVP PRN ×2 (14:18→14:31)
[2023-12-10 14:24] VITALS: RESP 16
[2023-12-10] MEDS: KETOROLAC 15 MG/ML 1 ML VIAL IVP PRN (20:46)
[2023-12-10] MEDS: SENNOSIDES-DOCUSATE SODIUM 1 EACH TAB PO SCH (21:03)
[2023-12-11] MEDS: KETOROLAC 15 MG/ML 1 ML VIAL IVP PRN ×3 (03:13→15:31)
[2023-12-11] MEDS: LACTATED RINGERS 1,000 ML IV SCH ×3 (03:16→20:32)
[2023-12-11 07:05] LABS: Basophils % (A) 0 %; Eosinophils # (A) 0.1 k/uL (0-0.7); Eosinophils % (A) 1 %; HCT 39.4 % (34.0-46.0); HGB 12.9 gm/dL (11.4-16.0); Lymphocytes # (A) 0.8 k/uL (1.0-4.8); Lymphocytes % (A) 8 %; MCH 29.9 pg (25.0-35.0); MCHC 32.7 g/dL (31.0-37.0); MCV 91.4 fL (80.0-100.0); Mean Platelet Volume 7.2; Monocytes # (A) 0.5 k/uL (0-1.0); Monocytes % (A) 5 %; Neutrophils # (A) 8.7 k/uL (1.3-7.7); Neutrophils % (A) 84 %; Platelet Count 301 k/uL (150-450); RBC 4.31 m/uL (3.80-5.40); RDW 15.1 % (11.5-15.5); WBC 10.3 k/uL (3.8-10.6)
[2023-12-11] MEDS ORDERED: HYDROcodone/APAP 5-325MG 1 EACH TAB PO PRN ×2 (08:41)
--- NOTE | 2023-12-11 08:41 | P.PN ---
Subjective Progress Note Date: 12/11/23 Patient reports moderate pain, primarily when getting out of bed. She denies flatus at this time but is managing and tolerating clear liquids. Objective - Vital Signs Vital signs: Vital Signs Temp 97.6 F 12/11/23 08:00 Pulse 84 12/11/23 08:00 Resp 16 12/11/23 08:00 BP 120/81 12/11/23 08:00 Pulse Ox 95 12/11/23 08:00 FiO2 Intake & Output 12/10/23 12/11/23 12/11/23 18:59 06:59 18:59 Intake Total 400 Output Total 500 575 Balance -100 -575 Weight 106.1 kg Intake: IV 400 Output: Urine 450 575 Estimated Blood Loss 50 Other: # Voids 1 - Exam General, this is a well-developed, well-nourished white female in no acute distress. Her abdomen is nondistended, soft, with appropriate tenderness. The incision is clean, dry, and intact. Her extremities are without any cyanosis, clubbing, or edema and are nontender to palpation bilaterally. - Labs CBC & Chem 7: 12/11/23 06:55 Labs: Abnormal Lab Results - Last 24 Hours (Table) 12/11/23 Range/Units 06:55 Neutrophils # 8.7 H (1.3-7.7) k/uL Lymphocytes # 0.8 L (1.0-4.8) k/uL Assessment and Plan (1) Breast cancer, right Current Visit: Yes Status: Acute Code(s): C50.911 - MALIGNANT NEOPLASM OF UNSP SITE OF RIGHT FEMALE BREAST SNOMED Code(s): 465672713 (2) Pelvic adhesions Current Visit: Yes Status: Acute Code(s): N73.6 - FEMALE PELVIC PERITONEAL ADHESIONS (POSTINFECTIVE) SNOMED Code(s): 175423204 Plan: The findings at the time of surgery were discussed at length with the patient including the inability to locate the left ovary. As she currently still has an ileus, we will not advance her diet until flatus was passed. I have strongly encouraged her to ambulate in the hallways routinely. For the time being, we will continue with the DRAG SAWYER O otherwise transitioned to [place] 5/325 mg as her diet advances.
[2023-12-11] MEDS ORDERED: ACETAMINOPHEN TAB 325 MG TAB PO PRN (13:36)
[2023-12-11] MEDS: SENNOSIDES-DOCUSATE SODIUM 1 EACH TAB PO SCH ×2 (14:54→20:21)
[2023-12-12] MEDS: IBUPROFEN 600 MG TAB PO PRN ×2 (00:07→08:10)
[2023-12-12] MEDS: SENNOSIDES-DOCUSATE SODIUM 1 EACH TAB PO SCH (08:11)
--- NOTE | 2023-12-12 08:35 | P.DS ---
Providers Date of admission: 12/10/23 13:35 Expected date of discharge: 12/12/23 Attending physician: Misael Gifford Primary care physician: Jose R Ryder - Discharge Diagnosis(es) (1) Breast cancer, right Current Visit: Yes Status: Acute (2) Pelvic adhesions Current Visit: Yes Status: Acute Hospital Course: The patient is a 43-year-old 0 para 0 who presented the office at the request of oncology with a history of an ER/MT positive breast cancer having previously undergone ELIZABETH with bilateral salpingectomy. She has been asked undergo bilateral oophorectomy secondary to her breast cancer. She was counseled and then taken to the operating room for laparoscopic bilateral oo phorectomy at which time she was found with significant left abdominal pelvic adhesions. The right ovary was removed without difficulty. The left ovary could not be discovered laparoscopically and the decision was made to proceed to laparotomy. After opening the abdomen and dissection of the sigmoid colon from the lateral sidewall, the ovary still could not be discovered. As neither palpable nor visible and after a significant amount of time searching, the decision was made to abandon further endeavors. The procedure was otherwise uncomplicated aside from the findings of adhesions and the inability to discover the left ovary. The presumption is that either it has been previously removed or that, previous surgery, its blood supply was compromised and it has had significant atrophy and therefore cannot be discovered. Her postoperative course was essentially unremarkable though she had a slightly prolonged ileus. She was tolerating regular diet by the evening of postoperative day #1 and was deemed stable for discharge on the morning of postoperative day #2. She was discharged home to follow-up in the office in 2 weeks for an incision check and 6 weeks routinely. Discharge instructions included calling for any significantly increased fever, urinary or bowel complaints, incisional complaints, or anything also concerned her. She is additionally instructed to do no heavy lifting over the next 6 weeks or so. She understood her instructions and agrees follow up as noted above. Discharge medications included [id number] analgesic pain medications as well as a prescription for [place] 5/325 mg, 1-2 by mouth every 6 hours when necessary pain, #20 dispensed. Discharge hemoglobin and hematocrit were 12.9 and 39.4 respectively. Pertinent Studies: #1. Laparoscopic right oophorectomy #2. Exploratory laparotomy #3. Lysis of adhesions Patient Condition at Discharge: Stable Plan - Discharge Summary Discharge Rx Participant: No New Discharge Prescriptions: New Ibuprofen [Motrin] 600 mg PO Q6HR PRN #30 tab PRN Reason: Mild Pain (Scale 1 To 3) oxyCODONE HCL [Roxicodone] 5 mg PO Q6HR PRN 3 Days #12 tab PRN Reason: Breakthrough Pain Acetaminophen Tab [Tylenol] 650 mg PO Q6H PRN #30 tab PRN Reason: Mild Pain (Scale 1 To 3) No Action Rosuvastatin [Crestor] 10 mg PO DAILY Naproxen Sodium [Aleve] 440 mg PO DIRECTED PRN PRN Reason: Pain Unk Biotin 1 tab PO DAILY hydroCHLOROthiazide [Hydrodiuril] 25 mg PO DAILY Ibuprofen [Motrin Ib] 600 mg PO BID PRN PRN Reason: Pain Discharge Medication List hydroCHLOROthiazide [Hydrodiuril] 25 mg PO DAILY 12/06/22 [History] Ibuprofen [Motrin Ib] 600 mg PO BID PRN 04/26/23 [History] Naproxen Sodium [Aleve] 440 mg PO DIRECTED PRN 12/03/23 [History] Rosuvastatin [Crestor] 10 mg PO DAILY 12/03/23 [History] Unk Biotin 1 tab PO DAILY 12/03/23 [History] Acetaminophen Tab [Tylenol] 650 mg PO Q6H PRN #30 tab 12/11/23 [Rx] Ibuprofen [Motrin] 600 mg PO Q6HR PRN #30 tab 12/11/23 [Rx] oxyCODONE HCL [Roxicodone] 5 mg PO Q6HR PRN 3 Days #12 tab 12/11/23 [Rx] Follow up Appointment(s)/Referral(s): Misael Gifford MD [STAFF PHYSICIAN] - 2 Weeks Discharge Disposition: HOME SELF-CARE
[2023-12-12 08:49] VITALS: BP 118/79; PULSE 73; TEMP 98
== END 2023-12-12 09:16 | disposition home or self-care (01) | DRG 580 ==
LOC: OR 09:47 → 4FBP 13:35
PROVIDERS: ADMIT Obstetrics & Gynecology; ATTEND Obstetrics & Gynecology
PROC: 0UT04ZZ Resection of Right Ovary, Percutaneous Endoscopic Approach (ICD-10-PCS; principal; 2023-12-10 11:15)
PROC: 0DNN0ZZ Release Sigmoid Colon, Open Approach (ICD-10-PCS; principal; 2023-12-10 11:15)
PROC: 0DNW0ZZ Release Peritoneum, Open Approach (ICD-10-PCS; principal; 2023-12-10 11:15)
PROC: 0UJ30ZZ Inspection of Ovary, Open Approach (ICD-10-PCS; principal; 2023-12-10 11:15)
DX: C50.911 Malignant neoplasm of unspecified site of right female breast (principal); K56.7 Ileus, unspecified; J45.909 Unspecified asthma, uncomplicated; E03.9 Hypothyroidism, unspecified; Z17.0 Estrogen receptor positive status [ER+]; N73.6 Female pelvic peritoneal adhesions (postinfective); Z90.710 Acquired absence of both cervix and uterus; Z90.13 Acquired absence of bilateral breasts and nipples; Z87.891 Personal history of nicotine dependence; Z85.3 Personal history of malignant neoplasm of breast; Z53.31 Laparoscopic surgical procedure converted to open procedure; Z92.21 Personal history of antineoplastic chemotherapy; Z92.3 Personal history of irradiation; Z86.19 Personal history of other infectious and parasitic diseases; Z79.899 Other long term (current) drug therapy
CPT/HCPCS: 85025; 88305

== ENCOUNTER 2023-12-25 07:25 | Emergency (ER) | payer BC ==
--- NOTE | 2023-12-25 07:43 | ED ---
General Adult HPI - General Chief complaint: Abdominal Pain Stated complaint: Abd Pain Time Seen by Provider: 12/25/23 07:28 Source: patient, RN notes reviewed, old records reviewed Mode of arrival: ambulatory Limitations: no limitations - History of Present Illness Initial comments: 43-year-old female 2 weeks postop laparotomywith right oophorectomy and lysis of adhesions. Patient presents with chief complaint of constipation, generalized abdominal pain and vomiting. Patient states she vomited extensively over the past several hours. She states that this did somewhat improve her pain. She states she has not had a bowel movement in several days. She denies fever. Denies drainage from incision. States that overall she had been doing well p ostoperatively. - Related Data Home Medications Medication Instructions Recorded Confirmed hydroCHLOROthiazide [Hydrodiuril] 25 mg PO DAILY 12/06/22 12/10/23 Ibuprofen [Motrin Ib] 600 mg PO BID PRN 04/26/23 12/10/23 Naproxen Sodium [Aleve] 440 mg PO DIRECTED PRN 12/03/23 12/10/23 Rosuvastatin [Crestor] 10 mg PO DAILY 12/03/23 12/10/23 Unk Biotin 1 tab PO DAILY 12/03/23 12/10/23 Previous Rx's Medication Instructions Recorded Acetaminophen Tab [Tylenol] 650 mg PO Q6H PRN #30 tab 12/11/23 Ibuprofen [Motrin] 600 mg PO Q6HR PRN #30 tab 12/11/23 oxyCODONE HCL [Roxicodone] 5 mg PO Q6HR PRN 3 Days #12 tab 12/11/23 Ondansetron Odt [Zofran Odt] 4 mg PO Q8HR PRN #10 tab 12/25/23 Allergies Allergy/AdvReac Type Severity Reaction Status Date / Time codeine AdvReac Nausea & Verified 12/10/23 10:13 Vomiting Review of Systems ROS Statement: Those systems with pertinent positive or pertinent negative responses have been documented in the HPI. ROS Other: All systems not noted in ROS Statement are negative. Past Medical History Past Medical History: Cancer, Osteoarthritis (OA) Additional Past Medical History / Comment(s): Started Chemo 04/18/23. Currently on Keflex for red blister/seroma fluid on right breast incisional site. Right breast cancer. Migraines. Uterine fibroids. History of Any Multi-Drug Resistant Organisms: None Reported Past Surgical History: Breast Surgery, Hysterectomy, Orthopedic Surgery, Tonsillectomy, Tubal Ligation, Uterine Ablation Additional Past Surgical History / Comment(s): Bilateral mastectomy, fractured left femur repair, left knee arthoscopy, right knee surgery, port a catheter placement. Past Anesthesia/Blood Transfusion Reactions: Motion Sickness, Postoperative Nausea & Vomiting (PONV) Past Psychological History: No Psychological Hx Reported Smoking Status: Former smoker Past Alcohol Use History: Occasional Past Drug Use History: None Reported - Past Family History Mother Family Medical History: Cancer Additional Family Medical History / Comment(s): Breast cancer. Father Family Medical History: Cancer Additional Family Medical History / Comment(s): Prostate cancer. General Exam Limitations: no limitations General appearance: alert, in no apparent distress Head exam: Present: atraumatic, normocephalic Eye exam: Present: normal appearance, PERRL ENT exam: Present: normal exam Neck exam: Present: normal inspection Respiratory exam: Present: normal lung sounds bilaterally. Absent: respiratory distress Cardiovascular Exam: Present: normal rhythm, tachycardia GI/Abdominal exam: Present: soft, tenderness. Absent: distended, guarding, rebound Neurological exam: Present: alert, oriented X3, CN II-XII intact, normal gait. Absent: motor sensory deficit Psychiatric exam: Present: normal affect, normal mood Skin exam: Present: warm, dry, intact. Absent: cyanosis, diaphoretic Course Vital Signs 12/25/23 07:28 Temperature 98.7 F Pulse Rate 118 H Respiratory 20 Rate Blood Pressure 137/94 O2 Sat by Pulse 99 Oximetry Medical Decision Making - Medical Decision Making Was pt. sent in by a medical professional or institution (, PA, MEDIA EXECUTIVE, urgent care, hospital, or jail...) When possible be specific @ -No Did you speak to anyone other than the patient for history (EMS, parent, family, police, friend...)? What history was obtained from this source @ -No Did you review nursing and triage notes (agree or disagree)? Why? @ -I reviewed and agree with nursing and triage notes Were old charts reviewed (outside hosp., previous admission, EMS record, old EKG, old radiological studies, urgent care reports/EKG's, jail records)? Report findings @ -No old charts were reviewed Differential Diagnosis (chest pain, altered mental status, abdominal pain women, abdominal pain men, vaginal bleeding, weakness, fever, dyspnea, syncope, headache, dizziness, GI bleed, back pain, seizure, CVA, palpatations, mental health, musculoskeletal)? @ -Differential Abdominal Pain Women: Appendicitis, Cholecystitis, diverticulosis, ischemic bowel, pancreatitis, hepatitis, UTI, gastroenteritis, AAA, incarcerated hernia, bowel obstruction, constipation, inflammatory bowel, hepatitis, peptic ulcer disease, splenic infarction, perforated viscus, vulvitis, ovarian torsion, PID, kidney stone, placenta abruption, this is not meant to be an all-inclusive list EKG interpreted by me (3pts min.). @Sinus tachycardia rate of 103, IL interval 144, QRS duration 89, QTc [address] segment elevation. X-rays interpreted by me (1pt min.). @ -KUB showing mild ileus, no dilated small bowel. CT interpreted by me (1pt min.). @ -CT abdomen pelvis with contrast, showing trace fluid likely postoperative, no acute findings. U/S interpreted by me (1pt. min.). @ -None done What testing was considered but not performed or refused? (CT, X-rays, U/S, labs)? Why? @ -None What meds were considered but not given or refused? Why? @ -None Did you discuss the management of the patient with other professionals (professionals i.e. , PA, MEDIA EXECUTIVE, lab, RT, psych nurse, psychotherapist social worker, concrete pump operator helper, teacher, light armored vehicle officer, director case management)? Give summary @ -Dr. Gifford Was smoking cessation discussed for >3mins.? @ -No Was critical care preformed (if so, how long)? @ -No Were there social determinants of health that impacted care today? How? (Homelessness, low income, unemployed, alcoholism, drug addiction, transportation, low edu. Level, literacy, decrease access to med. care, fdc, rehab)? @ -No Was there de-escalation of care discussed even if they declined (Discuss DNR or withdrawal of care, Hospice)? DNR status @ -No What co-morbidities impacted this encounter? (DM, HTN, Smoking, COPD, CAD, Cancer, CVA, ARF, Chemo, Hep., AIDS, mental health diagnosis, sleep apnea, morbid obesity)? @ -None Was patient admitted / discharged? Hospital course, mention meds given and route, prescriptions, significant lab abnormalities, going to OR and other pertinent info. @ -43-year-old 2 weeks postop laparotomy with abdominal pain and vomiting. Patient did feel significantly better after vomiting. Workup initiated, normal CBC, no leukocytosis, stable hemoglobin, normal electrolytes. No further vomiting while in emergency department, symptoms controlled. Patient case discussed with Dr. Gifford, patient has an appointment in 2 days, continued outpatient evaluation. Undiagnosed new problem with uncertain prognosis? @ -No Drug Therapy requiring intensive monitoring for toxicity (Heparin, Nitro, Insulin, Cardizem)? @ -No Were any procedures done? @ -No Diagnosis/symptom? @ -[Abdominal pain Acute, or Chronic, or Acute on Chronic? @ -Default Uncomplicated (without systemic symptoms) or Complicated (systemic symptoms)? @ -Default Side effects of treatment? @ -No Exacerbation, Progression, or Severe Exacerbation? @ -No Poses a threat to life or bodily function? How? (Chest pain, USA, ME, pneumonia, PE, COPD, DKA, ARF, appy, cholecystitis, CVA, Diverticulitis, Homicidal, Suicidal, threat to staff... and all critical care pts) @ -Low risk - Lab Data Result diagrams: 12/25/23 08:18 12/25/23 08:18 Lab Results 12/25/23 12/25/23 12/25/23 Range/Units 08:18 08:18 08:18 WBC 6.6 (3.8-10.6) k/uL RBC 5.17 (3.80-5.40) m/uL Hgb 15.4 (11.4-16.0) gm/dL Hct 45.1 (34.0-46.0) % MCV 87.3 (80.0-100.0) fL MCH 29.8 (25.0-35.0) pg MCHC 34.1 (31.0-37.0) g/dL RDW 15.2 (11.5-15.5) % Plt Count 390 (150-450) k/uL MPV 7.1 Neutrophils % 75 % Lymphocytes % 12 % Monocytes % 6 % Eosinophils % 5 % Basophils % 1 % Neutrophils # 5.0 (1.3-7.7) k/uL Lymphocytes # 0.8 L (1.0-4.8) k/uL Monocytes # 0.4 (0-1.0) k/uL Eosinophils # 0.3 (0-0.7) k/uL Basophils # 0.0 (0-0.2) k/uL PT 10.1 (10.0-12.5) sec INR 0.9 (<1.2) APTT 22.0 (22.0-30.0) sec Sodium 140 (137-145) mmol/L Potassium 3.9 (3.5-5.1) mmol/L Chloride 107 (98-107) mmol/L Carbon Dioxide 23 (22-30) mmol/L Anion Gap 10 mmol/L BUN 14 (7-17) mg/dL Creatinine 0.79 (0.52-1.04) mg/dL Est GFR (CKD-EPI)AfAm >90 (>60 ml/min/1.73 sqM) Est GFR (CKD-EPI)NonAf >90 (>60 ml/min/1.73 sqM) Glucose 122 H (74-99) mg/dL Plasma Lactic Acid Jamison (0.7-2.0) mmol/L Calcium 9.7 (8.4-10.2) mg/dL Total Bilirubin 0.8 (0.2-1.3) mg/dL AST 26 (14-36) U/L ALT 35 H (4-34) U/L Alkaline Phosphatase 154 H (38-126) U/L Troponin I (0.000-0.034) ng/mL Total Protein 7.3 (6.3-8.2) g/dL Albumin 4.4 (3.5-5.0) g/dL Amylase 47 (30-110) U/L Lipase 58 (23-300) U/L 12/25/23 12/25/23 Range/Units 08:18 08:18 WBC (3.8-10.6) k/uL RBC (3.80-5.40) m/uL Hgb (11.4-16.0) gm/dL Hct (34.0-46.0) % MCV (80.0-100.0) fL MCH (25.0-35.0) pg MCHC (31.0-37.0) g/dL RDW (11.5-15.5) % Plt Count (150-450) k/uL MPV Neutrophils % % Lymphocytes % % Monocytes % % Eosinophils % % Basophils % % Neutrophils # (1.3-7.7) k/uL Lymphocytes # (1.0-4.8) k/uL Monocytes # (0-1.0) k/uL Eosinophils # (0-0.7) k/uL Basophils # (0-0.2) k/uL PT (10.0-12.5) sec INR (<1.2) APTT (22.0-30.0) sec Sodium (137-145) mmol/L Potassium (3.5-5.1) mmol/L Chloride (98-107) mmol/L Carbon Dioxide (22-30) mmol/L Anion Gap mmol/L BUN (7-17) mg/dL Creatinine (0.52-1.04) mg/dL Est GFR (CKD-EPI)AfAm (>60 ml/min/1.73 sqM) Est GFR (CKD-EPI)NonAf (>60 ml/min/1.73 sqM) Glucose (74-99) mg/dL Plasma Lactic Acid Jamison 1.4 (0.7-2.0) mmol/L Calcium (8.4-10.2) mg/dL Total Bilirubin (0.2-1.3) mg/dL AST (14-36) U/L ALT (4-34) U/L Alkaline Phosphatase (38-126) U/L Troponin I <0.012 (0.000-0.034) ng/mL Total Protein (6.3-8.2) g/dL Albumin (3.5-5.0) g/dL Amylase (30-110) U/L Lipase (23-300) U/L Disposition Clinical Impression: Abdominal pain Disposition: HOME SELF-CARE Condition: Good Instructions (If sedation given, give patient instructions): Abdominal Pain (ED) Prescriptions: Ondansetron Odt [Zofran Odt] 4 mg PO Q8HR PRN #10 tab PRN Reason: Vomiting Is patient prescribed a controlled substance at d/c from ED?: No Referrals: Jose R Ryder DO [Primary Care Provider] - 1-2 days Misael Gifford MD [Family Provider] - 1-2 days Time of Disposition: 10:58
[2023-12-25] MEDS ORDERED: ONDANSETRON 4 MG/2 ML VIAL IVP STA (07:47)
[2023-12-25] MEDS ORDERED: SODIUM CHLORIDE 0.9% 1,000 ML IV ONE (07:47)
[2023-12-25 08:27] LABS: Basophils % (A) 1 %; Eosinophils # (A) 0.3 k/uL (0-0.7); Eosinophils % (A) 5 %; HCT 45.1 % (34.0-46.0); HGB 15.4 gm/dL (11.4-16.0); Lymphocytes # (A) 0.8 k/uL (1.0-4.8); Lymphocytes % (A) 12 %; MCH 29.8 pg (25.0-35.0); MCHC 34.1 g/dL (31.0-37.0); MCV 87.3 fL (80.0-100.0); Mean Platelet Volume 7.1; Monocytes # (A) 0.4 k/uL (0-1.0); Monocytes % (A) 6 %; Neutrophils % (A) 75 %; Platelet Count 390 k/uL (150-450); RBC 5.17 m/uL (3.80-5.40); RDW 15.2 % (11.5-15.5); WBC 6.6 k/uL (3.8-10.6)
[2023-12-25] MEDS ORDERED: HYDROmorphone 0.5 MG/0.5 ML SYRINGE IVP STA (08:29)
[2023-12-25 08:44] LABS: ALT 35 U/L (4-34); AST 26 U/L (14-36); African American GFR (CKD) >90 (>60 ml/min/1.73 sqM); Albumin 4.4 g/dL (3.5-5.0); Alkaline Phosphatase 154 U/L (38-126); Amylase 47 U/L (30-110); Anion Gap 10 mmol/L; Blood Urea Nitrogen 14 mg/dL (7-17); Calcium 9.7 mg/dL (8.4-10.2); Carbon Dioxide 23 mmol/L (22-30); Chloride 107 mmol/L (98-107); Glucose 122 mg/dL (74-99); Lipase 58 U/L (23-300); Non-African American GFR(CKD) >90 (>60 ml/min/1.73 sqM); Potassium 3.9 mmol/L (3.5-5.1); Sodium 140 mmol/L (137-145); Total Bilirubin 0.8 mg/dL (0.2-1.3); Total Protein 7.3 g/dL (6.3-8.2)
[2023-12-25 08:48] LABS: INR 0.9 (<1.2); Prothrombin Time 10.1 sec (10.0-12.5)
--- NOTE | 2023-12-25 08:59 | XR ---
EXAMINATION TYPE: XR KUB DATE OF EXAM: 12/25/2023 COMPARISON: NONE HISTORY: Pain TECHNIQUE: Single supine KUB image of the abdomen is obtained FINDINGS: Mildly distended loop of small bowel overlying the mid abdomen with air-fluid level seen. Otherwise v isualized bowel loops appear to be of normal caliber. Gas and fecal material is seen in non-distended colon. No convincing evidence for pneumoperitoneum. No unusual calcifications. The lung bases are clear. The osseous structures are intact. IMPRESSION: 1. Nonspecific nonobstructive bowel gas pattern. Correlate for ileus.
--- NOTE | 2023-12-25 10:02 | CT ---
EXAMINATION TYPE: CT abdomen pelvis w con CT DLP: 1383.4 mGycm, Automated exposure control for dose reduction was used. DATE OF EXAM: 12/25/2023 9:52 AM COMPARISON: KUB radiograph 12/25/2023 CLINICAL INDICATION:Female, 43 years old with history of ab pain post op; umbilical abd pain. pt had surgery to remove ovaries on 12/10, sx was unsuccessful due to too much scar tissue. TECHNIQUE: Standard CT of the abdomen and pelvis following the administration of 100 cc of Isovue 3 00 IV contrast material. Coronal and sagittal reformats were performed. FINDINGS: LOWER CHEST: Unremarkable ABDOMEN LIVER: Left hepatic lobe subcentimeter hypodense focus likely representing a cyst. Diffusely low atte nuating liver. GALLBLADDER AND BILE DUCTS: Unremarkable. PANCREAS: Unremarkable. SPLEEN: Unremarkable. ADRENAL GLANDS: Unremarkable. KIDNEYS AND URETERS: No evidence of hydronephrosis or renal calculus. The kidneys enhance symmetrical ly. PELVIS BLADDER: Incompletely distended but grossly unremarkable. REPRODUCTIVE: The uterus is surgically absent. ABDOMEN & PELVIS STOMACH AND BOWEL: Stomach and duodenum are unremarkable. The appendix is within normal limits. No ev idence of bowel obstruction. PERITONEUM: No evidence of pneumoperitoneum. Trace free fluid in the pelvis. 1.6 cm elongated metalli c foreign body identified within the posterior left pelvis (series 201, image 68). Thickening of the regions of the peritoneum fascia. VASCULATURE: No evidence of aortic aneurysm. MUSCULOSKELETAL: No acute osseous abnormalities. Degenerative disc disease with prominent posterior o steophyte at L5-S1. LYMPH NODES: No gross evidence for lymphadenopathy. SOFT TISSUE/ABDOMINAL WALL: Stranding within the anterior lower mesentery adjacent to the anterior ab dominal wall. No definitive pneumothorax with collection. Additional linear stranding identified in t he mesentery. IMPRESSION: 1. Trace free fluid in the pelvis with stranding within the anterior lower mesentery adjacent to the anterior abdominal wall with additional regions throughout the mesentery. Likely related to reported recent surgery. Cannot exclude superimposed peritonitis. Elongated 1.6 metallic foreign body identif ied within the left posterior pelvis which could represent a tubal ligation clip versus other etiolog ies. Correlation with clinical history is recommended. 2. Hepatic steatosis.
[2023-12-25] MEDS ORDERED: METOCLOPRAMIDE 5 MG/ML 2 ML VIAL IVP STA (10:58)
[2023-12-25 11:42] VITALS: BP 134/80; PULSE 98; RESP 18; TEMP 98.2
== END 2023-12-25 11:28 | disposition home or self-care (01) ==
LOC: EC 07:25
DX: K76.0 Fatty (change of) liver, not elsewhere classified (principal); R00.0 Tachycardia, unspecified; M19.90 Unspecified osteoarthritis, unspecified site; Z79.1 Long term (current) use of non-steroidal anti-inflammatories (NSAID); Z87.891 Personal history of nicotine dependence; Z88.5 Allergy status to narcotic agent
CPT/HCPCS: 99285; 96374; 96375 ×2; 96361 ×2; 36415; 93005; 80053; 82150; 83605; 83690; 84484; 85025; 85610; 85730; 74018; 74177; J2765; J2405; J1170; Q9967

== ENCOUNTER → 2024-01-16 | Outpatient (CLI) | payer BC ==
--- NOTE | 2024-01-16 15:38 | US ---
EXAMINATION TYPE: US abdomen limited DATE OF EXAM: 01/16/2024 COMPARISON: NONE CLINICAL INDICATION: Female, 43 years old with history of R10.11 ABDOMINAL PAIN, RUQ; RUQ pain occasi onal n/v after eating TECHNIQUE: Multiple sonographic images of the right upper quadrant are obtained. FINDINGS: EXAM MEASUREMENTS: Liver Length: 16.6 cm Gallbladder Wall: 0.2 cm CBD: 0.3 cm Right Kidney: 9.3x4.3x4.7 cm FIRE HOSE CURER NOTES: exam limited by bowel and body habitus Pancreas: Tail obscured by overlying bowel gas Liver: upper limits, cyst again seen in left lobe: 0.8x0.7x0.7cm. The parenchyma is echogenic and at tenuating. Gallbladder: wnl Evidence for sonographic Henderson's sign: No CBD: wnl Right Kidney: No hydronephrosis or masses seen IMPRESSION: 1. At least moderate hepatic steatosis. Appropriate clinical management is advised. 2. No gallstones or biliary ductal dilatation.
== END | disposition home or self-care (01) ==
LOC: RADUSWWP 07:11
PROVIDERS: ATTEND Internal Medicine
DX: K76.0 Fatty (change of) liver, not elsewhere classified (principal)
CPT/HCPCS: 76705

== ENCOUNTER → 2024-01-17 | Outpatient (CLI) | payer BC ==
--- NOTE | 2024-01-17 21:01 | BD ---
EXAMINATION TYPE: Axial Bone Density DATE OF EXAM: 01/17/2024 CLINICAL HISTORY: 43 years old Female. ICD-10 CODE: M85.88 OTH DISRD OF BONE DENSITY AND STRUCTURE, OT Height: 66" Weight: 225.9lbs FRAX RISK QUESTIONS: Alcohol (3 or more units per day): No Family History (Parent hip fracture): No Glucocorticoids (More than 3mos): Yes, along with chemotherapy, last chemo tx 07/2023 (Ex: prednisone, prednisolone, methylprednisolone, dexamethasone, and hydrocortisone). History of Fracture in Adulthood: No Secondary Osteoporosis: 1. Type 1 Diabetes: No 2. Hyperthyroidism: No 3. Menopause before 45: Yes, hysterectomy 4. Malnutrition: No 5. Chronic liver disease: No Rheumatoid Arthritis: No Current Tobacco Use: No RISK FACTORS HISTORY OF: Hip Fracture (Right/Left): No Spine Fracture: No History of Wrist Fracture: No Surgery to Spine/Hip(right/left)/Wrist (right/left): No MEDICATIONS: Thyroid Medications: No Osteoporosis Medications: No EXAM MEASUREMENTS: Bone mineral densitometry was performed using the [employer]. Bone mineral density as measured about the Lumbar spine is: ----- L1-L4(G/cm2): 1.152 T Score Values are as follows: ----- L1: -1.1 ----- L2: -0.3 ----- L3: 0.0 ----- L4: 0.0 ----- L1-L4: -0.2 Z Score Values are as follows: ----- L1: -2.2 ----- L2: -1.4 ----- L3: -1.2 ----- L4: -1.1 ----- L1-L4: -1.4 Baseline @MPH Bone mineral density about the R hip (g/cm2): 1.092 Bone mineral density about the L hip (g/cm2): 1.229 T Score values are as follows: -----R Neck: 0.0 -----L Neck: 1.5 -----R Total: 0.7 -----L Total: 1.8 Z Score values are as follows: -----R Neck: -0.2 -----L Neck: 1.3 -----R Total: 0.1 -----L Total: 1.2 Baseline @MPH FRAX%s: The graph provided illustrates a 2.3% chance for a major osteoporotic fx and a 0.0% chance fo r the hips probability for fx in 10 years time. IMPRESSION: Normal (Values between +1 and -1 indicate normal bone mass). Consider repeating this study in 5 year s or sooner if there is some new clinical indication. NOTE: T-SCORE=SD OF THE YOUNG ADULT MEAN.
== END | disposition home or self-care (01) ==
LOC: RADBDWWP 09:45
PROVIDERS: ATTEND Internal Medicine
DX: M85.88 Other specified disorders of bone density and structure, other site (principal); I10 Essential (primary) hypertension; C50.811 Malignant neoplasm of overlapping sites of right female breast; Z71.3 Dietary counseling and surveillance; Z78.0 Asymptomatic menopausal state
CPT/HCPCS: 77080

== ENCOUNTER → 2024-02-26 | Day surgery (SDC) | payer BC ==
[~2024-02-26] MED LIST changes: -DEXAMETHASONE SOD PHOSPHATE 4 MG/ML 1 ML VIAL IV ONE; -LIDOCAINE 1% (10MG/ML) FOR IV START INTRADERMA PRN; -MIDAZOLAM 2 MG/2 ML VIAL IV PRN; -ONDANSETRON 4 MG/2 ML VIAL IVP ONE; +PROPOFOL 10 MG/ML 20 ML VIAL IV ONE; -Pre Op ABX Message 1 EACH MISC MISCELLANE ONE
[2024-02-26] MEDS: LACTATED RINGERS 1,000 ML IV SCH (09:38)
[2024-02-26 10:05] VITALS: TEMP 97.3
--- NOTE | 2024-02-26 10:30 | P.GSHP ---
History of Present Illness H&P Date: 02/26/24 Chief Complaint: Colon cancer screening 43-year-old female known to our service. Patient with history of previous breast cancer. Here today for screening colonoscopy. No bowel complaints. No family history of colon cancer. Past Medical History Past Medical History: Cancer, Osteoarthritis (OA) Additional Past Medical History / Comment(s): Started Chemo 04/18/23. Right breast cancer. Migraines. Uterine fibroids. History of Any Multi-Drug Resistant Organisms: None Reported Past Surgical History: Breast Surgery, Hysterectomy, Orthopedic Surgery, Tonsill ectomy, Tubal Ligation, Uterine Ablation Additional Past Surgical History / Comment(s): Bilateral mastectomy, fractured left femur repair, left knee arthoscopy, right knee surgery, port a catheter placement. tissue expanders placed and Past Anesthesia/Blood Transfusion Reactions: Motion Sickness, Postoperative Nausea & Vomiting (PONV) Smoking Status: Former smoker - Past Family History Mother Family Medical History: Cancer Additional Family Medical History / Comment(s): Breast cancer. Father Family Medical History: Cancer Additional Family Medical History / Comment(s): Prostate cancer. Medications and Allergies Home Medications Medication Instructions Recorded Confirmed Type hydroCHLOROthiazide [Hydrodiuril] 25 mg PO DAILY 12/06/22 02/26/24 History Naproxen Sodium [Aleve] 440 mg PO DIRECTED PRN 12/03/23 02/26/24 History Rosuvastatin [Crestor] 10 mg PO DAILY 12/03/23 02/26/24 History Unk Biotin 1 tab PO DAILY 12/03/23 02/26/24 History Acetaminophen Tab [Tylenol] 650 mg PO Q6H PRN #30 tab 12/11/23 02/26/24 Rx Ibuprofen [Motrin] 600 mg PO Q6HR PRN #30 tab 12/11/23 02/26/24 Rx Anastrazole 1 mg PO DAILY 02/22/24 02/26/24 History Vit B(Unk) 1 tab PO DAILY 02/22/24 02/26/24 History Vit D (Unk) 1 tab PO DAILY 02/22/24 02/26/24 History Allergies Allergy/AdvReac Type Severity Reaction Status Date / Time codeine AdvReac Nausea & Verified 02/26/24 09:34 Vomiting Surgical - Exam Vital Signs Temp Pulse Resp BP Pulse Ox 97.3 F L 111 H 18 155/74 96 04/02/24 09:42 02/26/24 09:42 02/26/24 09:42 02/26/24 09:42 02/26/24 09:42 Physical exam: General: Well-developed, well-nourished HEENT: Normocephalic, sclerae nonicteric Abdomen: Nontender, nondistended Extremities: No edema Neuro: Alert and oriented Assessment and Plan (1) Colon cancer screening Narrative/Plan: Proceed with colonoscopy at this time Current Visit: Yes Status: Acute Code(s): Z12.11 - ENCOUNTER FOR SCREENING FOR MALIGNANT NEOPLASM OF COLON SNOMED Code(s): 598481901
--- NOTE | 2024-02-26 10:46 | P.PCN ---
Date of Procedure: 02/26/24 Procedure(s) Performed: PREOPERATIVE DIAGNOSIS: Colon cancer screening POSTOPERATIVE DIAGNOSIS: Diverticulosis, proximal rectal polyp PROCEDURE: Colonoscopy with snare polypectomy ANESTHESIA: MAC SURGEON: Austin Mendes M.D. SPECIMENS: Rectal polyp ENDOSCOPIC PROCEDURE: The patient was placed on the endoscopy table in the left decubitus position. The Olympus colonoscope was inserted into the anus and passed under direct visualization to the base of the cecum. The appendiceal orifice was visualized. From that point the scope was slowly withdrawn inspecting all surfaces carefully. There were no neoplastic inflammatory or polypoid lesions throughout the cecum, ascending, transverse, descending, and sigmoid colon. In the rectum proximally there is a small polyp that was removed using the snare with cautery technique. The remainder of the rectum was normal. There was mild left-sided diverticulosis. Digital rectal examination was normal. The patient was taken to the recovery room in stable condition per anesthesia guidelines. RECOMMENDATIONS: Await biopsy results. Anticipate repeat colonoscopy 5 to 7 years.
[2024-02-26 11:24] VITALS: RESP 16
[2024-02-26 12:06] VITALS: BP 125/90; PULSE 90
== END ==
LOC: ORWHC2ENDO 09:03
PROVIDERS: ATTEND Surgery
DX: Z12.11 Encounter for screening for malignant neoplasm of colon (principal); D12.8 Benign neoplasm of rectum; K57.30 Diverticulosis of large intestine without perforation or abscess without bleeding; E78.5 Hyperlipidemia, unspecified; Z87.891 Personal history of nicotine dependence; Z79.811 Long term (current) use of aromatase inhibitors; Z79.899 Other long term (current) drug therapy; Z88.5 Allergy status to narcotic agent
CPT/HCPCS: 88305; 45385; J2704

== ENCOUNTER 2024-11-16 10:54 | Emergency (ER) | payer BC ==
[2024-11-16 11:07] VITALS: RESP 20
[2024-11-16] MEDS: ACETAMINOPHEN TAB 500 MG TAB PO STA (11:54)
[2024-11-16] MEDS: IBUPROFEN 800 MG TAB PO STA (11:54)
[2024-11-16 11:58] LABS: Basophils % (A) 1 %; Eosinophils # (A) 0.2 k/uL (0-0.7); Eosinophils % (A) 3 %; HCT 40.7 % (34.0-46.0); HGB 13.6 gm/dL (11.4-16.0); Lymphocytes # (A) 0.4 k/uL (1.0-4.8); Lymphocytes % (A) 8 %; MCHC 33.3 g/dL (31.0-37.0); MCV 93.2 fL (80.0-100.0); Mean Platelet Volume 6.9; Monocytes # (A) 0.5 k/uL (0-1.0); Monocytes % (A) 8 %; Neutrophils # (A) 4.6 k/uL (1.3-7.7); Neutrophils % (A) 79 %; Platelet Count 243 k/uL (150-450); RBC 4.37 m/uL (3.80-5.40); RDW 13.4 % (11.5-15.5); WBC 5.9 k/uL (3.8-10.6)
[2024-11-16] MEDS: SODIUM CHLORIDE 0.9% 2,000 ML IV ONE (11:58)
--- NOTE | 2024-11-16 12:04 | ED ---
Fever HPI - General Chief Complaint: Fever Stated Complaint: Cough Time Seen by Provider: 11/16/24 11:02 Source: patient, RN notes reviewed Mode of arrival: ambulatory Limitations: no limitations - History of Present Illness Initial Comments: 44-year-old female presents emerged from from urgent care with chief complaint of fever cough congestion body aches symptoms started the last complaint she is not in by urgent care secondary to tachycardia patient noted to have 102 temp. Has not taken any Motrin or Tylenol. She does have a history of prior inf ections from breast cancer, infection of her implant. Patient states this was over a year ago. Patient has not had any recent chemotherapy patient has nauseous without vomiting no urinary symptoms. - Related Data Home Medications Medication Instructions Recorded Confirmed hydroCHLOROthiazide [Hydrodiuril] 25 mg PO DAILY 12/06/22 02/26/24 Naproxen Sodium [Aleve] 440 mg PO DIRECTED PRN 12/03/23 02/26/24 Rosuvastatin [Crestor] 10 mg PO DAILY 12/03/23 02/26/24 Unk Biotin 1 tab PO DAILY 12/03/23 02/26/24 Anastrazole 1 mg PO DAILY 02/22/24 02/26/24 Vit B(Unk) 1 tab PO DAILY 02/22/24 02/26/24 Vit D (Unk) 1 tab PO DAILY 02/22/24 02/26/24 Previous Rx's Medication Instructions Recorded Acetaminophen Tab [Tylenol] 650 mg PO Q6H PRN #30 tab 12/11/23 Ibuprofen [Motrin] 600 mg PO Q6HR PRN #30 tab 12/11/23 Benzonatate [Tessalon Perle] 200 mg PO TID #15 capsule 11/16/24 Allergies Allergy/AdvReac Type Severity Reaction Status Date / Time codeine AdvReac Nausea & Verified 11/16/24 10:59 Vomiting Review of Systems ROS Statement: Those systems with pertinent positive or pertinent negative responses have been documented in the HPI. ROS Other: All systems not noted in ROS Statement are negative. Past Medical History Past Medical History: Cancer Additional Past Medical History / Comment(s): Started Chemo 04/18/23. Currently on Keflex for red blister/seroma fluid on right breast incisional site. Right breast cancer. Migraines. Uterine fibroids. History of Any Multi-Drug Resistant Organisms: None Reported Past Surgical History: Breast Surgery, Hysterectomy, Orthopedic Surgery, T onsillectomy, Tubal Ligation, Uterine Ablation Additional Past Surgical History / Comment(s): Bilateral mastectomy, fractured left femur repair, left knee arthoscopy, right knee surgery, port a catheter placement. Past Anesthesia/Blood Transfusion Reactions: Motion Sickness, Postoperative Nausea & Vomiting (PONV) Past Psychological History: No Psychological Hx Reported Smoking Status: Former smoker Past Alcohol Use History: None Reported Past Drug Use History: None Reported - Past Family History Mother Family Medical History: Cancer Additional Family Medical History / Comment(s): Breast cancer. Father Family Medical History: Cancer Additional Family Medical History / Comment(s): Prostate cancer. General Exam Limitations: no limitations General appearance: alert, in no apparent distress Head exam: Present: atraumatic, normocephalic, normal inspection Eye exam: Present: normal appearance, PERRL, EOMI. Absent: scleral icterus, conjunctival injection, periorbital swelling ENT exam: Present: normal exam, mucous membranes moist Neck exam: Present: normal inspection, full ROM. Absent: tenderness, meningismus, lymphadenopathy Respiratory exam: Present: normal lung sounds bilaterally. Absent: respiratory distress, wheezes, rales, rhonchi, stridor Cardiovascular Exam: Present: normal rhythm, tachycardia, normal heart sounds. Absent: systolic murmur, diastolic murmur, rubs, gallop, clicks GI/Abdominal exam: Present: soft, normal bowel sounds. Absent: distended, tenderness, guarding, rebound, rigid Course Vital Signs 11/16/24 11/16/24 11/16/24 10:59 11:06 12:30 Temperature 102 F H Pulse Rate 138 H 130 H 128 H Respiratory 20 20 20 Rate Blood Pressure 160/90 172/103 156/95 O2 Sat by Pulse 96 99 98 Oximetry 11/16/24 13:21 Temperature 99.6 F Pulse Rate 118 H Respiratory 20 Rate Blood Pressure 150/60 O2 Sat by Pulse 98 Oximetry Medical Decision Making - Medical Decision Making Was pt. sent in by a medical professional or institution (, PA, SAMPLER TESTER, urgent care, hospital, or jail...) When possible be specific @ -Urgent care Did you speak to anyone other than the patient for history (EMS, parent, family, police, friend...)? What history was obtained from this source @ -No Did you review nursing and triage notes (agree or disagree)? Why? @ -I reviewed and agree with nursing and triage notes Were old charts reviewed (outside hosp., previous admission, EMS record, old EKG, old radiological studies, urgent care reports/EKG's, jail records)? Report findings @ -No old charts were reviewed Differential Diagnosis (chest pain, altered mental status, abdominal pain women, abdominal pain men, vaginal bleeding, weakness, fever, dyspnea, syncope, headache, dizziness, GI bleed, back pain, seizure, CVA, palpatations, mental health, musculoskeletal)? @ -COVID 19, RSV, influenza, pneumonia, acute bronchitis, URI, this list is not all inclusive EKG interpreted by me (3pts min.). @ -As above X-rays interpreted by me (1pt min.). @ -[Chest x-ray 2 view shows no acute cardiopulmonary process CT interpreted by me (1pt min.). @ -None done U/S interpreted by me (1pt. min.). @ -None done What testing was considered but not performed or refused? (CT, X-rays, U/S, labs)? Why? @ -None What meds were considered but not given or refused? Why? @ -None Did you discuss the management of the patient with other professionals (professionals i.e. , PA, SAMPLER TESTER, lab, RT, psych nurse, social work coordinator, tamper operator, teacher, retail loss prevention officer, block and case maker)? Give summary @ -No Was smoking cessation discussed for >3mins.? @ -No Was critical care preformed (if so, how long)? @ -No Were there social determinants of health that impacted care today? How? (Homelessness, low income, unemployed, alcoholism, drug addiction, transportation, low edu. Level, literacy, decrease access to med. care, correction, rehab)? @ -No Was there de-escalation of care discussed even if they declined (Discuss DNR or withdrawal of care, Hospice)? DNR status @ -No What co-morbidities impacted this encounter? (DM, HTN, Smoking, COPD, CAD, Cancer, CVA, ARF, Chemo, Hep., AIDS, mental health diagnosis, sleep apnea, morbid obesity)? @ -None Was patient admitted / discharged? Hospital course, mention meds given and route, prescriptions, significant lab abnormalities, going to OR and other pertinent info. @ -Discharge patient feels greatly improved, patient's influenza a positive offered Tamiflu patient declined patient discharged with close follow-up. Undiagnosed new problem with uncertain prognosis? @ -No Drug Therapy requiring intensive monitoring for toxicity (Heparin, Nitro, Insulin, Cardizem)? @ -No Were any procedures done? @ -No Diagnosis/symptom? @ -Influenza A Acute, or Chronic, or Acute on Chronic? @ -Acute Uncomplicated (without systemic symptoms) or Complicated (systemic symptoms)? @ -Uncomplicated Side effects of treatment? @ -No Exacerbation, Progression, or Severe Exacerbation? @ -No Poses a threat to life or bodily function? How? (Chest pain, [place], [place], pneumonia, PE, COPD, DKA, ARF, appy, cholecystitis, CVA, Diverticulitis, Homicidal, Suicidal, threat to staff... and all critical care pts) @ -No - Lab Data Result diagrams: 11/16/24 11:13 11/16/24 11:13 Lab Results 11/16/24 11/16/24 11/16/24 Range/Units 11:13 11:13 11:13 WBC 5.9 (3.8-10.6) k/uL RBC 4.37 (3.80-5.40) m/uL Hgb 13.6 (11.4-16.0) gm/dL Hct 40.7 (34.0-46.0) % MCV 93.2 (80.0-100.0) fL MCH 31.0 (25.0-35.0) pg MCHC 33.3 (31.0-37.0) g/dL RDW 13.4 (11.5-15.5) % Plt Count 243 (150-450) k/uL MPV 6.9 Neutrophils % 79 % Lymphocytes % 8 % Monocytes % 8 % Eosinophils % 3 % Basophils % 1 % Neutrophils # 4.6 (1.3-7.7) k/uL Lymphocytes # 0.4 L (1.0-4.8) k/uL Monocytes # 0.5 (0-1.0) k/uL Eosinophils # 0.2 (0-0.7) k/uL Basophils # 0.0 (0-0.2) k/uL Sodium 138 (137-145) mmol/L Potassium 3.9 (3.5-5.1) mmol/L Chloride 105 (98-107) mmol/L Carbon Dioxide 24 (22-30) mmol/L Anion Gap 9 mmol/L BUN 10 (7-17) mg/dL Creatinine 0.70 (0.52-1.04) mg/dL Est GFR (CKD-EPI)AfAm >90 (>60 ml/min/1.73 sqM) Est GFR (CKD-EPI)NonAf >90 (>60 ml/min/1.73 sqM) Glucose 115 H (74-99) mg/dL Calcium 8.9 (8.4-10.2) mg/dL Total Bilirubin 0.7 (0.2-1.3) mg/dL AST 27 (14-36) U/L ALT 33 (4-34) U/L Alkaline Phosphatase 122 (38-126) U/L Total Protein 6.9 (6.3-8.2) g/dL Albumin 4.2 (3.5-5.0) g/dL Influenza Type A (PCR) Detected A (Not Detectd) Influenza Type B (PCR) Not Detected (Not Detectd) RSV (PCR) Not Detected (Not Detectd) SARS-CoV-2 (PCR) Not Detected (Not Detectd) - EKG Data -: EKG Interpreted by Me EKG Comments: EGD performed at 11: 19 sinus tachycardia rate of 131 CT 156 QRS 81 QT/QTc 381/453 Disposition Clinical Impression: Influenza A Disposition: HOME SELF-CARE Condition: Stable Instructions (If sedation given, give patient instructions): Fever in Adults (ED), Influenza (ED) Additional Instructions: Please return to the Emergency Department if symptoms worsen or any other co ncerns. Prescriptions: Benzonatate [Tessalon Perle] 200 mg PO TID #15 capsule Is patient prescribed a controlled substance at d/c from ED?: No Referrals: Jose R Ryder DO [Primary Care Provider] - 1-2 days Time of Disposition: 12:49
[2024-11-16 12:20] LABS: ALT 33 U/L (4-34); AST 27 U/L (14-36); African American GFR (CKD) >90 (>60 ml/min/1.73 sqM); Albumin 4.2 g/dL (3.5-5.0); Alkaline Phosphatase 122 U/L (38-126); Anion Gap 9 mmol/L; Blood Urea Nitrogen 10 mg/dL (7-17); Calcium 8.9 mg/dL (8.4-10.2); Carbon Dioxide 24 mmol/L (22-30); Chloride 105 mmol/L (98-107); Glucose 115 mg/dL (74-99); Non-African American GFR(CKD) >90 (>60 ml/min/1.73 sqM); Potassium 3.9 mmol/L (3.5-5.1); Sodium 138 mmol/L (137-145); Total Bilirubin 0.7 mg/dL (0.2-1.3); Total Protein 6.9 g/dL (6.3-8.2)
--- NOTE | 2024-11-16 12:39 | XR ---
EXAMINATION TYPE: XR chest 2V DATE OF EXAM: 11/16/2024 12:05 PM COMPARISON: Chest radiographs from 12/05/2023 CLINICAL INDICATION: Female, 44 years old with history of fever; TECHNIQUE: XR chest 2V Frontal and lateral views of the chest. FINDINGS: Lungs/Pleura: There is no evidence of pleural effusion, focal consolidation, or pneumothorax. Pulmonary vascularity: Unremarkable. Heart/mediastinum: Cardiomediastinal silhouette is unremarkable. Musculoskeletal: No acute osseous pathology. IMPRESSION: No acute cardiopulmonary disease/process. [facility], , 11/16/2024 12:36 PM
[2024-11-16 13:22] VITALS: BP 150/60; PULSE 118; TEMP 99.6
== END 2024-11-16 13:28 | disposition home or self-care (01) ==
LOC: EC 10:54
DX: J10.1 Influenza due to other identified influenza virus with other respiratory manifestations (principal); Z87.891 Personal history of nicotine dependence; Z88.5 Allergy status to narcotic agent
CPT/HCPCS: 36415; 71046; 80053; 85025; 87636; 93005; 96360; 99284

== ENCOUNTER → 2024-12-12 | Outpatient (CLI) | payer BC ==
--- NOTE | 2024-12-12 10:18 | CT ---
EXAMINATION TYPE: CT chest w con DATE OF EXAM: 12/12/2024 10:00 AM COMPARISON: 11/16/2024. CLINICAL INDICATION: Female, 44 years old with history of ACUTE COUGH R05.3; PHH, cough, hx of breast ca TECHNIQUE: Multiple axial images were obtained through the chest. Sagittal and coronal reformats were created for review. MIP was performed on a separate workstation. Contrast used:100 mL of Isovue 300 with IV Contrast (None if empty) Oral contrast used: (None if empty) CT DLP: 536 mGycm, Automated exposure control for dose reduction was used. FINDINGS: LUNGS/ PLEURA: Posttreatment changes right breast. Scarring interstitial prominence near the right ch est wall. No focal consolidation, pneumothorax or pleural effusion. AIRWAY: Patent and unremarkable. HEART: Size within normal limits. MEDIASTINUM: No gross evidence of adenopathy. VASCULATURE: No aortic aneurysm. MUSCULOSKELETAL: No acute osseous abnormalities SOFT TISSUES/LYMPH NODES: Left breast implant appears intact. Right breast implant removed with posts urgical change possibly some fluid. LOWER NECK: No significant findings. UPPER ABDOMEN: Diffuse low-attenuation to the liver parenchyma. IMPRESSION: 1. No evidence for acute process. 2. Postsurgical changes right breast with possible postop seroma. Consider ultrasound evaluation. No new or enlarging lymph nodes. No suspicious pulmonary nodules. 3. Hepatic steatosis. 4. Colonic diverticulosis. [facility], , 12/12/2024 10:15 AM
== END | disposition home or self-care (01) ==
LOC: RADCTMAIN 09:18
PROVIDERS: ATTEND Internal Medicine
DX: R05.3 Chronic cough (principal); Z85.3 Personal history of malignant neoplasm of breast; K57.30 Diverticulosis of large intestine without perforation or abscess without bleeding; K76.89 Other specified diseases of liver; Z98.890 Other specified postprocedural states
CPT/HCPCS: 71260; Q9967